=== PATIENT | female | born 1945 | race Caucasian/White ===

== ENCOUNTER → 2016-11-25 | Outpatient (REF) | payer MEDICARE, MEDICAID ==
[~2016-11-25] MED LIST: /ACETCOD2T PO; /ALEN70TA; /GLIP10TAB; /METO25TAB PO; /WARF5TA PO; ACET-71 PO; ACET50TA PO; ACTO45TA; ALEN35TA PO; ALLE25CA PO; AMLO10TA2 PO; AMLO5TAB2 PO; APAP325T PO; ARTI99.0 OU; ASPI81TA85 PO; BACITAB3 PO; BENGEL TOP; CALCCHW8 PO; CARV3.12 PO; CATA0.1D TD; CEPH500C PO; CLONI1TA PO; COLA100C PO; COLA100C2; COLA100C2 PO; COZA50TA PO; DARV100T; DIOV320T PO; DRIS50002 PO; DULO1CAP PO; ELIQ5TAB PO; FENOFIBRATE PO; FERG1TAB PO; FERR325T PO; FERR325T3 PO; FOLI1TAB2 PO; FOSA70TA PO; GABA-279 PO; GLUC500T PO; HYDR25TA6; INSUDET SC; INSUH10VL SC; ISOS60TA2 PO; JANUVIA PO; KEFL500C; LANTINJ4 SC; LASI20TA PO; LATA5OPD OU; LEVA250T PO; LEVE1INJ5 SC; LEXA1TAB PO; LIDO5DIS36 TD; LOSA50TA20 PO; MAGN250T10 PO; MELA5TAB14 PO; META28.35 PO; METF750T PO; METO25TA2 PO; METO25TA74 PO; MILKSUS PO; MUCI30TA2 PO; MYRB50TA PO; NITR2OI TOP; NORCOTAB PO; NORT75CA2 PO; NORV5TAB PO; NOVOINJ3 SC; NYST100024 TOP; OMEP20CA3 PO; OMEP40CA2 PO; OSCA200T PO; PERC5TAB8 PO; PERC7.5T8; PLAV75TA2; POLYBTL PO; PRED20TAB PO; PRIL40CA PO; RANI150T PO; SENO8.6T10 PO; SERT-141 PO; SERT50TA2 PO; TOPR50TA; TRIC145T PO; TYLE325T5 PO; VALS80CA PO; VESI10TA PO; VIST25CA PO; VITA10002 PO; VITA100027 PO; VITA500047 PO; VITA500C10 PO; VITA500T88 PO; VITAMIN B 12; VITAMIN B 12 PO; VITAMIN D50000 UNT; VITAMIN D50000 UNT PO; XARE20TA PO; ZETI10TA PO; ZETI10TA2 PO
[2016-11-25 08:49] LABS: MEAN CORPUSCULAR HEMOGLOBIN 28.8 pg (27.0-33.0); MEAN CORPUSCULAR HGB CONC 32.4 g/dl (32.0-36.5); MEAN CORPUSCULAR VOLUME 88.8 fl (80.0-96.0); RED CELL DISTRIBUTION WIDTH 13.2 % (11.5-14.5); WHITE BLOOD COUNT 6.7 K/mm3 (4.0-10.0)
[2016-11-25 09:18] LABS: ANION GAP 7 MEQ/L (8-16); BLOOD UREA NITROGEN 37 MG/DL (7-18); CALCIUM LEVEL 9.3 MG/DL (8.8-10.2); CARBON DIOXIDE LEVEL 28 MEQ/L (21-32); CHLORIDE LEVEL 107 MEQ/L (98-107); CREATININE FOR GFR 0.97 MG/DL (0.55-1.02); GLOMERULAR FILTRATION RATE > 60.0 (>39); GLUCOSE, FASTING 128 MG/DL (83-110); POTASSIUM SERUM 4.3 MEQ/L (3.5-5.1); SODIUM LEVEL 142 MEQ/L (136-145)
== END ==
LOC: SKLAB6 07:00
PROVIDERS: ATTEND Internal Medicine
DX: E11.22 Type 2 diabetes mellitus with diabetic chronic kidney disease (principal); N18.9 Chronic kidney disease, unspecified; Z86.73 Personal history of transient ischemic attack (TIA), and cerebral infarction without residual deficits; I73.9 Peripheral vascular disease, unspecified; I25.10 Atherosclerotic heart disease of native coronary artery without angina pectoris; F03.90 Unspecified dementia, unspecified severity, without behavioral disturbance, psychotic disturbance, mood disturbance, and anxiety

== ENCOUNTER → 2016-12-01 | Outpatient (REF) | payer MEDICARE, MEDICAID | LOC: SKLAB6 14:35 | PROVIDERS: ATTEND Internal Medicine | DX: R41.0 Disorientation, unspecified (principal); R35.0 Frequency of micturition ==

== ENCOUNTER → 2016-12-05 | Outpatient (REF) | payer MEDICARE, MEDICAID ==
[2016-12-05 17:52] LABS: MEAN CORPUSCULAR HEMOGLOBIN 29.5 pg (27.0-33.0); MEAN CORPUSCULAR HGB CONC 32.6 g/dl (32.0-36.5); MEAN CORPUSCULAR VOLUME 90.5 fl (80.0-96.0); RED CELL DISTRIBUTION WIDTH 12.6 % (11.5-14.5); WHITE BLOOD COUNT 7.1 K/mm3 (4.0-10.0)
[2016-12-05 18:03] LABS: ANION GAP 8 MEQ/L (8-16); BLOOD UREA NITROGEN 47 MG/DL (7-18); CALCIUM LEVEL 9.1 MG/DL (8.8-10.2); CARBON DIOXIDE LEVEL 26 MEQ/L (21-32); CHLORIDE LEVEL 110 MEQ/L (98-107); CREATININE FOR GFR 0.95 MG/DL (0.55-1.02); GLOMERULAR FILTRATION RATE > 60.0 (>39); GLUCOSE, FASTING 164 MG/DL (83-110); SODIUM LEVEL 144 MEQ/L (136-145)
== END ==
LOC: SKLAB6 16:52
PROVIDERS: ATTEND Internal Medicine
DX: R41.0 Disorientation, unspecified (principal)

== ENCOUNTER → 2016-12-29 | Outpatient (REF) | payer MEDICARE, MEDICAID ==
[2016-12-29 14:59] LABS: BASO % 0.4 % (0.0-1.0); EOS # 0.2 K/mm3 (0.0-0.50); EOS % 3.5 % (0.0-3.0); LARGE UNSTAINED CELL # 0.1 K/mm3 (0.0-0.4); LARGE UNSTAINED CELL % 1.1 % (0.0-4.0); LYMPH # 1.2 K/mm3 (1.5-4.5); LYMPH % 17.2 % (24.0-44.0); MEAN CORPUSCULAR HEMOGLOBIN 29.7 pg (27.0-33.0); MEAN CORPUSCULAR HGB CONC 32.8 g/dl (32.0-36.5); MEAN CORPUSCULAR VOLUME 90.5 fl (80.0-96.0); MONO # 0.3 K/mm3 (0.0-0.8); MONO % 4.5 % (0.0-5.0); NEUTROPHILS # 4.7 K/mm3 (1.8-7.7); NEUTROPHILS % 73.3 % (36.0-66.0); PLATELET COUNT, AUTOMATED 246 k/mm3 (150-450); RED CELL DISTRIBUTION WIDTH 12.6 % (11.5-14.5); WHITE BLOOD COUNT 6.4 K/mm3 (4.0-10.0)
[2016-12-29 15:21] LABS: ALBUMIN 3.1 GM/DL (3.2-5.2); MAGNESIUM LEVEL 1.7 MG/DL (1.8-2.4); PHOSPHORUS LEVEL 3.9 MG/DL (2.5-4.9); POTASSIUM SERUM 4.9 MEQ/L (3.5-5.1); URIC ACID 6.7 MG/DL (2.6-6.0)
== END ==
LOC: SKLAB6 13:00
PROVIDERS: ATTEND Internal Medicine
DX: R41.82 Altered mental status, unspecified (principal); N18.3 Chronic kidney disease, stage 3 (moderate)

== ENCOUNTER 2017-02-24 11:59 | Inpatient (IN) | payer MEDICARE, MEDICAID ==
[~2017-02-24] VITALS: Ht 154.9 cm; Wt 62.1 kg
[~2017-02-24 11:59] MED LIST changes: -AMIO0.1T PO; -ATEN25TA PO; -CEFD1CAP8 PO; -DECA1CAP2 PO; -DULC10SU2 PR; -ENEMENE3 PR; -GLUC1KIT IM; -GLUC4CHW PO; -HALD5INJ2 IM; -ISOS10TAB PO; -PHEN1SUP6 PR; -PROM25TA PO; -RANI1TAB38 PO; -SENN8.6T7 PO; -SERO1TAB3 PO; -SPIR25TA2 PO; -TORS10TA3 PO; -VENL75TA2 PO
[2017-02-24] MEDS ORDERED: DECA1CAP2 PO (12:36)
[2017-02-24] MEDS ORDERED: RANI1TAB38 PO (12:36)
[2017-02-24] MEDS ORDERED: SPIR25TA2 PO (12:36)
[2017-02-24] MEDS ORDERED: SERO1TAB3 PO (12:36)
[2017-02-24] MEDS ORDERED: TORS10TA3 PO (12:36)
[2017-02-24] MEDS ORDERED: VENL75TA2 PO (12:36)
[2017-02-24] MEDS ORDERED: NS 500 ML IV ONE ×2 (13:00→15:15)
[2017-02-24 13:41] LABS: MEAN CORPUSCULAR HEMOGLOBIN 28.1 pg (27.0-33.0); MEAN CORPUSCULAR HGB CONC 32.3 g/dl (32.0-36.5); RED CELL DISTRIBUTION WIDTH 13.3 % (11.5-14.5); WHITE BLOOD COUNT 7.7 K/mm3 (4.0-10.0)
[2017-02-24 14:09] LABS: ALBUMIN 3.5 GM/DL (3.2-5.2); ALBUMIN/GLOBULIN RATIO 1.03 (1.00-1.93); BILIRUBIN,DIRECT 0.1 MG/DL (0.0-0.2); BILIRUBIN,TOTAL 0.3 MG/DL (0.2-1.0); TOTAL PROTEIN 6.9 GM/DL (6.4-8.2)
[2017-02-24 14:14] LABS: POTASSIUM SERUM 6.2 MEQ/L (3.5-5.1)
--- NOTE | 2017-02-24 14:21 | REP ---
BILATERAL RENAL ULTRASOUND: 02/24/2017. Clinical history: Acute renal failure. Sonographic evaluation of the kidneys shows the right 9.7 x 4.6 x 4.4 cm, it has normal cortical echogenicity and thickness. Sinus lipomatosis noted. There is no hydronephrosis or hydroureter. The left kidney is 8.7 x 4.3 x 3.8 cm. There is areas of increased cortical echogenicity and some overall mild atrophy. Sinus lipomatosis again seen. There is no stone, cyst, solid mass or perinephric fluid. No hydronephrosis. The bladder is nearly empty, unable to be evaluated. Impression: 1. Atrophy of the left kidney 8.7 cm with the right kidney 9.7 cm in length. 2. No hydronephrosis or hydroureter on either side with some mild increased cortical echogenicity on the left that may reflect some medical renal disease. 3. Sinus lipomatosis both sides without mass, cyst or visible stone. 4. Bladder nearly empty unable to be evaluated. Exam somewhat limited overall with sonographic windows limited and the patient unable to breath hold adequately. Signed by Marvin Huggins MD 02/24/2017 03:01 P
[2017-02-24] MEDS ORDERED: HumuLIN R (REGULAR) INSULIN (NovoLIN R) **100U/ML** PER UNIT IV ONE (14:30)
[2017-02-24] MEDS ORDERED: SOD POLYSTYRENE SULFONATE SUSP 15 GM/60 ML UD PO ONE (14:30)
[2017-02-24] MEDS ORDERED: DEXTROSE 50% 50 ML SYRINGE IV SCH (14:30)
--- NOTE | 2017-02-24 15:30 | REP ---
TWO VIEW CHEST: Two views of the chest are performed. COMPARISON: 10/18/2016 as well as other prior exams. There is no acute infiltrate. The heart is not enlarged. Mediastinal silhouette is unchanged. There is mild calcification of thoracic aorta. There are degenerative changes of the spine. There is an old compression deformity of T12 vertebral body. IVC filter is present. Metallic clips are seen in the right upper quadrant of the abdomen. There is an old fracture of the proximal right humerus. IMPRESSION: No acute pulmonary disease. Signed by Alfred Sosa MD 02/25/2017 03:17 P
[2017-02-24] MEDS ORDERED: PHEN1SUP6 PR (16:29)
[2017-02-24] MEDS ORDERED: HALD5INJ2 IM (16:29)
[2017-02-24] MEDS ORDERED: ENEMENE3 PR (16:29)
[2017-02-24] MEDS ORDERED: DULC10SU2 PR (16:29)
[2017-02-24] MEDS ORDERED: PROM25TA PO (16:29)
[2017-02-24] MEDS ORDERED: GLUC1KIT IM (16:32)
[2017-02-24] MEDS ORDERED: GLUC4CHW PO (16:32)
[2017-02-24] MEDS ORDERED: SENN8.6T7 PO (16:32)
[2017-02-24] MEDS ORDERED: GLUCAGON FOR INJ 1 MG VIAL (J1610) SC PRN (17:45)
[2017-02-24] MEDS ORDERED: SENOKOT S TAB PO PRN (17:45)
[2017-02-24] MEDS ORDERED: GLUCOSE 4 GM CHEW TABLET PO PRN (17:45)
[2017-02-24] MEDS ORDERED: POLYVINYL ALCOHOL OPHTH SOLN 15 ML(LIQUITEARS) OU PRN (17:45)
[2017-02-24] MEDS ORDERED: DEXTROSE 50% 50 ML SYRINGE IV PRN (17:45)
[2017-02-24] MEDS ORDERED: BISACODYL 10 MG SUPP PR PRN (17:45)
[2017-02-24] MEDS ORDERED: PROMETHAZINE 25 MG SUPP PR PRN (17:45)
[2017-02-24] MEDS ORDERED: NYSTATIN 100,000 UNITS/GM TOPICAL PWD 15 GM TOP PRN (17:45)
[2017-02-24] MEDS ORDERED: HALOPERIDOL 5 MG/ML VIAL (J1630) IM PRN (17:45)
[2017-02-24] MEDS ORDERED: MOM 30ML SUSPENSION UDC PO PRN (17:45)
[2017-02-24] MEDS ORDERED: PROMETHAZINE 25 MG TAB PO PRN (17:45)
[2017-02-24] MEDS: NS 1,000 ML IV SCH (18:18)
[2017-02-24] MEDS: FOLIC ACID 1 MG TAB PO SCH (18:18)
[2017-02-24 20:47] LABS: ALBUMIN 3.6 GM/DL (3.2-5.2); ALBUMIN/GLOBULIN RATIO 1.09 (1.00-1.93); BILIRUBIN,TOTAL 0.2 MG/DL (0.2-1.0); CREATININE FOR GFR 1.65 MG/DL (0.55-1.02); GLOMERULAR FILTRATION RATE 32.6 (>39); TOTAL PROTEIN 6.9 GM/DL (6.4-8.2)
[2017-02-24 20:52] LABS: POTASSIUM SERUM 5.2 MEQ/L (3.5-5.1)
[2017-02-24] MEDS: HumaLOG INSULIN (NovoLOG) PER UNIT SC SCH (21:00)
[2017-02-24] MEDS: ACETAMINOPHEN TAB 650MG DOSE (2X325MG) PO SCH (21:00)
[2017-02-24 21:10] VITALS: BP 159/75
[2017-02-24] MEDS: FAMOTIDINE 20 MG TAB PO SCH (21:14)
[2017-02-24] MEDS: LATANOPROST 0.005% OPHTH SOLN 2.5 ML OU SCH (21:14)
[2017-02-24] MEDS: QUEtiapine FUMARATE 25 MG TAB PO SCH (21:14)
[2017-02-24] MEDS: LEVEMIR (INSULIN DETEMIR) 1 UNITS/0.01ML SC SCH (21:15)
[2017-02-24 21:28] LABS: BASO % 0.3 % (0.0-1.0); EOS # 0.2 K/mm3 (0.0-0.50); EOS % 2.6 % (0.0-3.0); LARGE UNSTAINED CELL # 0.1 K/mm3 (0.0-0.4); LARGE UNSTAINED CELL % 1.5 % (0.0-4.0); LYMPH # 1.6 K/mm3 (1.5-4.5); LYMPH % 18.6 % (24.0-44.0); MEAN CORPUSCULAR HEMOGLOBIN 28.2 pg (27.0-33.0); MEAN CORPUSCULAR HGB CONC 32.5 g/dl (32.0-36.5); MEAN CORPUSCULAR VOLUME 86.9 fl (80.0-96.0); MONO # 0.5 K/mm3 (0.0-0.8); MONO % 5.8 % (0.0-5.0); NEUTROPHILS # 5.9 K/mm3 (1.8-7.7); NEUTROPHILS % 71.2 % (36.0-66.0); PLATELET COUNT, AUTOMATED 293 k/mm3 (150-450); RED CELL DISTRIBUTION WIDTH 13.4 % (11.5-14.5); WHITE BLOOD COUNT 8.2 K/mm3 (4.0-10.0)
--- NOTE | 2017-02-24 21:52 | HPE ---
DATE OF ADMISSION: 02/24/2017 PRIMARY CARE PROVIDER: Dr. Saucedo Patient is a resident at [facility]). ATTENDING PROVIDER: Dr. Kang HISTORY OF PRESENT ILLNESS: The patient is a 71-year-old female, history of dementia, presented to the emergency room from [facility] after she was found to have acute kidney injury and hyperkalemia, likely secondary to poor oral intake and diuretics. She was started on IV fluids. The patient is confused, unable to provide history. Most of the history is obtained from previous medical records and the emergency room (ER) report. REVIEW OF SYSTEMS: Unable to obtain due to the patient's mentation. PAST MEDICAL HISTORY: Significant for diabetes, coronary artery disease (CAD), peripheral vascular disease, history of stroke, hypertension, chronic kidney disease (CKD) stage III, history of deep venous thrombosis (DVT) status post inferior vena cava (IVC) filter and history of dementia. PAST SURGICAL HISTORY: Significant for hysterectomy, cholecystectomy, appendectomy, right CVA, IVC filter placed, back surgery and bladder tumor removal. ALLERGIES: LIDOCAINE, NIACIN, PENTOXIFYLLINE, DILTIAZEM, HYDROCODONE, MOXIFLOXACIN, QUINOLONES, TRAMADOL, VERAPAMIL, ATORVASTATIN, METFORMIN, OMEPRAZOLE, ROSUVASTATIN and SIMVASTATIN. MEDICATIONS: Include: - Tylenol 650 by mouth twice a day - Senna as needed for constipation - Dulcolax as needed for constipation - folic acid 1 mg daily - Haldol 1 mg IM every 6 hours as needed for agitation - Levemir 10 units subcutaneously twice a day - melatonin 5 mg at bedtime - milk of magnesia 30 mL for constipation - nystatin rash and itching - promethazine 25 mg every 6 hours as needed for nausea - Phenergan 25 mg every 6 hours as needed for nausea - Seroquel 25 mg by mouth twice a day - ranitidine one tablet by mouth daily - enema as needed for constipation - spironolactone 25 mg daily FAMILY HISTORY: Noncontributory. SOCIAL HISTORY: The patient is a resident at [facility]. PHYSICAL FINDINGS: Temperature 97.3, pulse 95, respiratory rate 18, blood pressure is 115/57, pulse oximetry 99% on room air. HEENT: Pupils equal, round, react to light and accommodation. Neck: Supple. No jugular venous distention (JVD). Lungs: Clear to auscultation bilaterally. Cardiac: The patient had an episode of atrial fibrillation that she converted out of in the emergency room. She has no history of atrial fibrillation. Currently the patient is tachycardiac in atrial fibrillation at a rate of 130-140. Extremities: No clubbing, cyanosis or edema. Neurologic: Unable to do a neurologic exam at this time. LABORATORY FINDINGS: Sodium 142, potassium 5.2, chloride 108, BUN 90, creatinine 1.65, fasting glucose 159, AST 17, ALT 26. WBC 7.7, hemoglobin 2.8, hematocrit 36.6, platelet count 289. Urinalysis was grossly abnormal, cloudy in appearance, too many to count WBCs, 3+ leukocyte esterase. Urine culture pending. Renal ultrasound was done in emergency room which showed atrophy of the left kidney of 8.7 cm and the right kidney of 9.7 cm. No hydronephrosis. No mass or cyst seen. Bladder is nearly empty, able to be evaluated. ASSESSMENT/PLAN: 1. Acute on chronic kidney disease. The patient has stage III kidney injury. Baseline creatinine is 0.9 to 1. Upon presentation it was 1.86, repeat after the patient received some fluid was 1.65. The patient was also found to have hyperkalemia, likely secondary to dehydration. We will continue IV fluids. Repeat labs in the morning. 2. Hyperkalemia. Likely secondary to diuretics. The patient is on spironolactone which we will hold at this time. We will also hold her torsemide and continue IV fluids, gentle hydration. 3. History of insulin-dependent diabetes. Continue Levemir 10 units twice a day and insulin sliding scale with Accu-Check before food and at bedtime. Will start the patient on carbohydrate consistent diet. 4. History of dementia. Continue the patient's Haldol as needed. 5. Atrial fibrillation, may be secondary to dehydration. Continue IV fluids. Continue to monitor the patient on telemetry. The patient has no known history of atrial fibrillation. We will repeat EKG in the morning. 6. Deep venous thrombosis (DVT) prophylaxis. Continue the patient on thromboembolism deterrents (TEDs) and sequentials.
[2017-02-24 22:02] VITALS: BP 140/63
[2017-02-25] VITALS (13 sets, daily range): BP systolic 120–162; BP diastolic 60–92
[2017-02-25] MEDS ORDERED: METOPROLOL 5 MG/5 ML VIAL IV STA (01:09)
[2017-02-25] MEDS ORDERED: METOPROLOL 5 MG/5 ML VIAL As Ordered ONE (01:12)
[2017-02-25] MEDS ORDERED: DIGOXIN INJ 0.5 MG/2 ML AMP (J1160) IV STA (01:26)
[2017-02-25] MEDS ORDERED: DIGOXIN INJ 0.5 MG/2 ML AMP (J1160) As Ordered ONE (01:29)
--- NOTE | 2017-02-25 03:13 | IPNPDOC ---
Date Seen The patient was seen on 02/25/17. Progress Note SUBJECTIVE: Patient was found to be in atrial fibrillation with RVR after moved from ED to PCU with fastest rate ranged 140s-180s. Remained asymptomatic, states that she is annoyed that people keep coming in and out of her room regarding her heart rate when she feels fine. Per report, patient has history of dementia. Patient was evaluated at bedside. Received Lopressor 3 mg and Digoxin 0.25 mg IV and approximately 5 minutes later had 3 secs pause. She remained asymptomatic throughout with stable Blood pressures. Case discussed with retort pre cooker marine engineering consultant, Dr. Martin, who at this time recommends a trial low of dose Cardizem. Given patient is currently rate controlled, will monitor patient off any AV ron agent. Discontinue digoxin. If her heart rate increases, will trial Cardizem later. Attempted to contact patient's family to update patient's status and verify code status, Felipa Byrne, daughter, , [phone] but no one was available. Patient has a DNR in chart but reportedly tonight wanted to be full code but she is not oriented to time. For now, will keep her Full code until further clarification from her HCP. I have both independently examined this patient as well as reviewed the note. I have discussed in detail with the resident the findings and plan of treatment as documented in the residents note. I will continue to follow the patient and offer further guidance to the patients care as necessary during this hospital stay. Truong Tobar MD VS, I&O, 24H, Umesh Vital Signs/I&O Vital Signs Date Time Temp Pulse Resp B/P Pulse Ox O2 Delivery O2 Flow Rate FiO2 02/25/17 02:14 Room Air 02/25/17 01:34 156 02/25/17 01:16 120/80 02/25/17 00:50 96.9 18 99 I&O- Last 24 Hours up to 6 AM 02/25/17 06:00 Intake Total 740 ml Output Total 100 ml Balance 640 ml Laboratory Data 24H LABS Laboratory Tests 2 02/24/17 13:28: Aspartate Amino Transf (AST/SGOT) 20, Alanine Aminotransferase (ALT/SGPT) 25, Alkaline Phosphatase 59, Total Bilirubin 0.3, Direct Bilirubin 0.1, Albumin 3.5 , Albumin/Globulin Ratio 1.03, Total Protein 6.9, Urine Amorphous Sediment , Urine Appearance CLOUDYH, Urine Color YELLOW, Urine pH 5.0, Urine Specific [place] 1.010, Urine Protein 1+H, Urine Glucose (UA) NEGATIVE, Urine Ketones NEGATIVE, Urine Urobilinogen 0.2, Urine Bilirubin NEGATIVE, Urine Leukocyte Esterase 3+H, Urine Bacteria (Auto) NEGATIVE, Urine Blood 1+H, Urine Calcium Carbonate Cryst(Auto) , Urine Calcium Oxalate Cryst (Auto) , Urine Calcium Phosphate [place] (Auto) , Urine Cellular Casts , Urine Cystine Crystals , Urine Granular Casts (Auto) , Urine Hyaline Casts (Auto) 4, Urine Leucine Crystals , Urine Mucus (Auto) SMALL, Urine Nitrite NEGATIVE, Urine Oval Fat Bodies (Auto) , Urine RBC (Auto) 13H, Urine Renal Epithelial Cells , Urine Sperm (Auto) , Urine Squamous Epithelial Cells 1, Urine Transitional Epithelial Cells , Urine Trichomonas (Auto) , Urine Triple Phosphate Cryst (Auto) , Urine Tyrosine Crystals , Urine Uric Acid Crystals (Auto) , Urine WBC (Auto) TNTCH, Urine Waxy Casts (Auto) , Urine Yeast-Like Cells (Auto) 02/24/17 14:50: Bedside Glucose (Misc Panel) 130H 02/24/17 18:11: Bedside Glucose (Misc Panel) 113H 02/24/17 20:12: Aspartate Amino Transf (AST/SGOT) 17, Alanine Aminotransferase (ALT/SGPT) 26, Alkaline Phosphatase 60, Total Bilirubin 0.2, Albumin 3.6, Albumin/Globulin Ratio 1.09, Total Protein 6.9, Blood Urea Nitrogen 90H, Creatinine 1.65H, Sodium Level 142, Potassium Level 5.2H, Chloride Level 108H, Carbon Dioxide Level 25, Calcium Level 9.0, Anion Gap 9, Glomerular Filtration Rate 32.6L 02/24/17 20:22: Bedside Glucose (Misc Panel) 141H 02/24/17 21:07: White Blood Count 8.2, Red Blood Count 4.38, Hemoglobin 12.4, Hematocrit 38.0, Mean Corpuscular Volume 86.9, Mean Corpuscular Hemoglobin 28.2, Mean Corpuscular Hemoglobin Concent 32.5, Red Cell Distribution Width 13.4, Platelet Count 293, Neutrophils (%) (Auto) 71.2H, Lymphocytes (%) (Auto) 18.6L, Monocytes (%) (Auto) 5.8H, Eosinophils (%) (Auto) 2.6, Basophils (%) (Auto) 0.3 , Neutrophils # (Auto) 5.9, Lymphocytes # (Auto) 1.6, Monocytes # (Auto) 0.5, Eosinophils # (Auto) 0.2, Basophils # (Auto) 0.0, Large Unclassified Cells # 0.1 , Large Unclassified Cells % 1.5 02/25/17 01:33: Creatine Kinase MB 7.4H, Creatine Kinase MB Relative Index 10.13H, Magnesium Level 2.0, Thyroid Stimulating Hormone (TSH) 2.070, Total Creatine Kinase 73, Troponin I 0.05 CBC/BMP Laboratory Tests 02/24/17 13:28 Red Blood Count 4.21, Mean Corpuscular Volume 87.0, Mean Corpuscular Hemoglobin 28.1, Mean Corpuscular Hemoglobin Concent 32.3, Red Cell Distribution Width 13.3 02/24/17 20:12 Calcium Level 9.0, Aspartate Amino Transf (AST/SGOT) 17, Alanine Aminotransferase (ALT/SGPT) 26, Alkaline Phosphatase 60, Total Bilirubin 0.2, Total Protein 6.9, Albumin 3.6 02/24/17 21:07 Red Blood Count 4.38, Mean Corpuscular Volume 86.9, Mean Corpuscular Hemoglobin 28.2, Mean Corpuscular Hemoglobin Concent 32.5, Red Cell Distribution Width 13.4 , Neutrophils (%) (Auto) 71.2 H, Lymphocytes (%) (Auto) 18.6 L, Monocytes (%) ( Auto) 5.8 H, Eosinophils (%) (Auto) 2.6, Basophils (%) (Auto) 0.3, Neutrophils # (Auto) 5.9, Lymphocytes # (Auto) 1.6, Monocytes # (Auto) 0.5, Eosinophils # ( Auto) 0.2, Basophils # (Auto) 0.0 Microbiology Microbiology 02/24/17 Urine Culture, Received Pending PAULINA ZAYAS DO Feb 25, 2017 03:13 TRUONG TOBAR MD Feb 25, 2017 18:45
[2017-02-25] MEDS ORDERED: DIGOXIN INJ 0.5 MG/2 ML AMP (J1160) IV SCH (06:00)
[2017-02-25] MEDS ORDERED: DIGOXIN INJ 0.5 MG/2 ML AMP (J1160) IV ONE (06:00)
[2017-02-25 07:15] LABS: MEAN CORPUSCULAR HEMOGLOBIN 28.1 pg (27.0-33.0); MEAN CORPUSCULAR HGB CONC 32.2 g/dl (32.0-36.5); MEAN CORPUSCULAR VOLUME 87.1 fl (80.0-96.0); RED CELL DISTRIBUTION WIDTH 13.4 % (11.5-14.5); WHITE BLOOD COUNT 6.8 K/mm3 (4.0-10.0)
[2017-02-25 07:38] LABS: ALBUMIN/GLOBULIN RATIO 0.86 (1.00-1.93); BILIRUBIN,TOTAL 0.2 MG/DL (0.2-1.0); CALCIUM LEVEL 8.5 MG/DL (8.8-10.2); CREATININE FOR GFR 1.41 MG/DL (0.55-1.02); MAGNESIUM LEVEL 1.8 MG/DL (1.8-2.4); POTASSIUM SERUM 4.7 MEQ/L (3.5-5.1); TOTAL PROTEIN 6.5 GM/DL (6.4-8.2)
[2017-02-25] MEDS: QUEtiapine FUMARATE 25 MG TAB PO SCH ×2 (08:26→21:41)
[2017-02-25] MEDS: LEVEMIR (INSULIN DETEMIR) 1 UNITS/0.01ML SC SCH ×2 (08:26→21:41)
[2017-02-25] MEDS: VENLAFAXINE 37.5 MG TAB PO SCH (08:27)
[2017-02-25] MEDS: cefTRIAXone SOD 2 GM in D5W MINI-BAG PLUS 50 ML IV SCH ×2 (08:27→18:33)
[2017-02-25] MEDS: FAMOTIDINE 20 MG TAB PO SCH ×2 (08:27→21:42)
[2017-02-25] MEDS: FOLIC ACID 1 MG TAB PO SCH (08:27)
[2017-02-25] MEDS: ACETAMINOPHEN TAB 650MG DOSE (2X325MG) PO SCH ×2 (08:27→21:42)
[2017-02-25] MEDS: HumaLOG INSULIN (NovoLOG) PER UNIT SC SCH ×4 (08:28→21:41)
[2017-02-25] MEDS: NS 1,000 ML IV SCH (08:28)
[2017-02-25] MEDS ORDERED: SPIRONOLACTONE 25 MG TAB PO SCH (09:00)
[2017-02-25] MEDS: PHENAZOPYRIDINE 100 MG TAB PO SCH ×2 (14:25→21:42)
--- NOTE | 2017-02-25 16:29 | IPN ---
DATE: 02/25/2017 SUBJECTIVE: Patient seen and examined in the room today. Patient shows some sign of dementia. Denies any acute complaints, but patient did complain about dysuria for several days. On telemetry patient was noted to have acute atrial fibrillation when patient was walking to the restroom, and when patient came back to the room resting in bed he was noted to have a 3-second asystole, and patient's heart rate converted back to sinus rhythm. OBJECTIVE: VITAL SIGNS: Temperature is 99, pulse 88, respirations 18, blood pressure is 132/63, pulse oximetry is 100% in room air. GENERAL: Patient has sign of dementia. Patient alert and awake, able to answer questions and follow commands. HEENT: Normocephalic, atraumatic. Extraocular motor grossly intact. CARDIOVASCULAR: Positive S1, S2, regular rate at the time of examination, but patient noted to have an infrequent atrial fibrillation with a few seconds of asystole. GASTROINTESTINAL: Abdomen soft, nontender, nondistended. Bowel sounds present. EXTREMITIES: No edema. No sign of cyanosis. LABORATORY DATA: WBC 6.8, hemoglobin 11.1, hematocrit 87.1, platelet count of 271. Sodium is 142, potassium 4.7, chloride is 111, carbon dioxide is 24, BUN is 69, creatinine 1.41, GFR is 39, fasting glucose 118, calcium is 8.5, magnesium 1.8. Total bilirubin 0.2, AST 20, ALT 22, alkaline phosphatase is 52. Total CK is 77, troponin I 0.05. Total protein 6.5, albumin 3. TSH of 2.07. ASSESSMENT AND PLAN: 1. Acute kidney injury secondary to poor oral intake. At baseline, patient has a creatinine around 1. Patient is currently on intravenous (IV) fluid. Patient's renal function has been improving since admission. 2. Hypokalemia secondary to poor oral intake. On admission patient had a potassium of 6.2. Now patient's potassium is 4.7, which is within normal range. 3. History of insulin-dependent diabetes. Patient is on Levemir, covering with sliding scale. Patient will be on consistent-carbohydrate diet. 4. History of dementia. 5. History of atrial fibrillation. Patient does not have a known history of atrial fibrillation. Patient is on cardiac telemetry. 6. Deep vein thrombosis (DVT) prophylaxis. Patient on thromboembolic deterrents (TEDs) and sequential compression devices.
--- NOTE | 2017-02-25 17:28 | IPN ---
DATE: 02/25/2017 SUBJECTIVE: The patient had an episode of atrial fibrillation (A-fib) with rapid ventricular rate (RVR), and there is also a three second asystole noted on the cardiac telemetry. I reached out to on-call investment manager, Dr. Martin. He discussed the case, and then I also called the patient's healthcare proxy, Mrs. Felipa Munson. Her phone number is [phone], and also discussed the situation with the proxy. They decided they were willing to consider option for a pacemaker insertion, and relating the patient back to investment manager, Dr. Martin, and the patient will be evaluated for possible pacemaker insertion. I also confirmed with the patient's proxy, Mrs. Leo, and confirmed that the patient's code status is DO NOT RESUSCITATE (DNR)/DO NOT INTUBATE (DNI).
[2017-02-25] MEDS: AMIODARONE 200 MG TAB (PACERONE) PO SCH ×2 (17:41→21:42)
--- NOTE | 2017-02-25 21:33 | CR ---
DATE OF CONSULTATION: 02/25/2017 REFERRING PHYSICIAN: Dr. Ann Kang REASON FOR CONSULTATION: Paroxysmal atrial fibrillation with rapid ventricular response, sick sinus syndrome/tachycardia-bradycardia syndrome. HISTORY OF PRESENT ILLNESS: Moriah Delgadillo is a pleasant 71-year-old woman with sick sinus syndrome and dementia. When she was hospitalized to [facility] in April 2016, she was noted to have episodes of profound sinus bradycardia in the 30s for which she was on just carvedilol 3.125 mg twice a day. She was found to be very sensitive to beta blockers and calcium channel blockers because of severe bradycardia. During the present hospitalization, the patient developed episodes of paroxysmal atrial fibrillation with rapid ventricular response and when she spontaneously converted to sinus rhythm, she was having pauses in the neighborhood of 3.4 seconds, associated with transient severe lightheadedness/presyncope. She was tried on a small dose of beta shannon initially and was subsequently tried on a low dose of diltiazem and again she continued to have severe transient bradycardia/asystole following switch from atrial fibrillation with rapid response back to sinus mechanism. Furthermore, these medications did not do an adequate job of controlling the rapid ventricular response when she was in atrial fibrillation. Cardiology has been consulted for consideration of implanting a dual chamber pacemaker for sick sinus syndrome/tachycardia-bradycardia syndrome. The patient is a poor historian because of dementia. The patient does recall that she was severely lightheaded and almost passed out when she was in the bathroom yesterday. She denies any palpitations, chest pain, shortness of breath, strokes or claudication symptoms, but again I do not think that she is very reliable because of dementia. PAST MEDICAL HISTORY: Includes: 1. Type 2 diabetes . 2. Systemic hypertension. 3. History of deep vein thrombosis (DVT), for which she had been on Eliquis chronically and she has status post inferior vena cava filter. 4. Dementia. 5. Prior stroke with resultant left sided hemiparesis. 6. Diabetic neuropathy. 7. Benign bladder tumor. 8. Osteoarthritis. 9. Status post hysterectomy. 10. Status post appendectomy. 11. Status post cholecystectomy. 12. Status post cataract surgery. 13. Status post right carotid endarterectomy. 14. Status post inferior vena cava filter. 15. Status post L2-L3 and L4-L5 decompression surgeries. 16. Status post removal of bladder tumors. 17. Chronic kidney disease stage III. ADVERSE DRUG REACTIONS: LIDOCAINE, NIACIN, PENTOXIFYLLINE, DILTIAZEM, HYDROCODONE, MOXIFLOXACIN, QUINOLONES, TRAMADOL, VERAPAMIL, ATORVASTATIN, METFORMIN, OMEPRAZOLE, ROSUVASTATIN, SIMVASTATIN. MEDICATIONS PRIOR TO ADMISSION: - Tylenol - Senna as needed for constipation - Dulcolax as needed for constipation - folic acid 1 mg daily - Haldol 1 mg intramuscularly every 6 hours as needed for agitation - Levemir 10 units subcutaneously twice a day - melatonin 5 mg at night - milk of magnesia 30 mL as needed for constipation - Nystatin for rash - promethazine 25 mg by mouth every 6 hours as needed for nausea - Phenergan 25 mg every 6 hours as needed for nausea - Seroquel 25 mg twice a day - ranitidine one tablet daily - spironolactone 25 mg daily The patient's current medications in the hospital are as follows: - amiodarone 200 mg four times a day - Pyridium 100 mg by mouth every 8 hours - Effexor 75 mg daily - Humalog insulin per sliding scale - ceftriaxone 2 grams intravenously every 12 hours - acetaminophen 650 mg twice a day - Levemir insulin 10 units subcutaneously twice a day - Xalatan ophthalmic solution one drop both eyes at night - Seroquel 25 mg twice a day - famotidine 20 mg by mouth twice a day - Humalog insulin at night per sliding scale - artificial tears - Dulcolax suppository 10 mg daily as needed - Senokot S one twice a day as needed - Haloperidol 1 mg intramuscularly every 6 hours as needed for agitation - milk of magnesia 30 mL daily as needed - Nystatin powder topically twice a day as needed - Phenergan 25 mg by mouth every 6 hours as needed for nausea - Phenergan suppository 25 mg every 6 hours as needed - folic acid 1 mg by mouth daily FAMILY HISTORY: Noncontributory. SOCIAL HISTORY: Resident of [facility]. REVIEW OF SYSTEMS: Review of systems could not be reliably obtained from this patient because of dementia. PHYSICAL EXAMINATION: Pleasant, , elderly woman who was not in respiratory or psychological distress. She was oriented to person and place but not time. She appears overweight, although her Body Mass Index (BMI) was 24.6. Height 61 inches. Weight 58.97 kg. Temperature 96.9, pulse 80 (regular), respiratory rate 20, blood pressure 157/92, oxygen saturation 97% on room air. No conjunctival pallor or scleral icterus or xanthomas. Edentulous. Oral mucosa is moist. Tongue is without pallor. Jugular venous pulsations at 3 cm. Trachea midline. No palpable thyroid. Right carotid endarterectomy scar present. No clubbing or splinter hemorrhages. No skin lesions, skin pallor or icterus. Mood and affect appear normal. Curvature of spine normal. Gait not tested. Gross motor, strength and tone normal. No abnormal muscle fasciculations or tremors. Respiratory expansion and effort was good. No paradoxical wheezes. First and second heart sounds normal. No S3 or S4. No palpable apex beat. Quads were normal in contour and without bruits. No palpable abdominal aorta. No abdominal bruits. Femoral pulses normal. Pedal pulses normal. No lower extremity edema. Abdomen was soft and nontender with normal bowel sounds. No hepatosplenomegaly. No organomegaly. Liver span is 10 cm from right midclavicular line. Stool for occult blood not presently indicated. INVESTIGATIONS: I have independently visualized the patient's PA and lateral chest x-ray acquired on 02/24/2017. Heart appears to be normal in size. Suboptimal inspiration. No pulmonary vascular redistribution. No interstitial or alveolar infiltrate. No pleural effusions. Electrocardiogram on 02/25/2017 at 12:17 p.m. shows sinus rhythm, 78 beats per minute, normal PA interval, low limb lead voltages, nonspecific ST-T abnormalities. Poor R wave progression. Laboratory work from 02/25/2017 was reviewed. Hemoglobin 11.1, hematocrit 34.5, platelets 271. Sodium 142, potassium 4.7, chloride 111, CO2 24, BUN 69, creatinine 1.41, estimated GFR 39.0, glucose 118, magnesium 1.8, calcium 8.5, albumin 3.0. ASSESSMENT AND PLAN: 1. Paroxysmal atrial fibrillation with rapid ventricular response. The patient may resume her chronic Eliquis therapy within a few days following placement of a permanent pacemaker . Once the patient has had a permanent pacemaker, she can be placed safely on a beta shannon or other AV ron slowing agent. Given her problems with constipation, I would suggest use of beta shannon rather than a non-dihydropyridine calcium channel shannon. Also, I would like to try to keep her in sinus rhythm as much as possible because she has such a rapid ventricular response in atrial fibrillation and to do so she will be placed on low dose amiodarone. 2. Sick sinus syndrome/tachycardia-bradycardia syndrome. The patient qualifies for implantation of a permanent dual chamber pacemaker. This was discussed by telephone with the patient's daughter, who also serves as the patient's healthcare proxy (daughter is Felipa Byrne). Indications and benefits of pacemaker implantation were explained, as well as risks of pacemaker implantation exactly as listed on the consent form were explained by telephone and telephone consent was obtained. The plan is to proceed to the operating room tomorrow for implantation of a permanent dual chamber pacemaker. 3. Systemic hypertension. Continue to observe blood pressure trends in the hospital and once the patient has had a permanent pacemaker, the plan is to add a beta shannon. Thank you kindly for asking me to participate in the care of Moriah Delgadillo.
[2017-02-25] MEDS: LATANOPROST 0.005% OPHTH SOLN 2.5 ML OU SCH (21:41)
[2017-02-26] VITALS (10 sets, daily range): BP systolic 123–182; BP diastolic 53–84
[2017-02-26] MEDS: NS 1,000 ML IV SCH ×3 (01:55→12:50)
[2017-02-26 05:36] LABS: MEAN CORPUSCULAR HEMOGLOBIN 27.8 pg (27.0-33.0); MEAN CORPUSCULAR HGB CONC 31.1 g/dl (32.0-36.5); MEAN CORPUSCULAR VOLUME 89.2 fl (80.0-96.0); RED CELL DISTRIBUTION WIDTH 13.6 % (11.5-14.5); WHITE BLOOD COUNT 5.7 K/mm3 (4.0-10.0)
[2017-02-26] MEDS: cefTRIAXone SOD 2 GM in D5W MINI-BAG PLUS 50 ML IV SCH ×2 (05:39→18:39)
[2017-02-26] MEDS: PHENAZOPYRIDINE 100 MG TAB PO SCH ×3 (05:40→21:52)
[2017-02-26 05:49] LABS: ALBUMIN/GLOBULIN RATIO 0.88 (1.00-1.93); BILIRUBIN,TOTAL 0.2 MG/DL (0.2-1.0); CALCIUM LEVEL 8.6 MG/DL (8.8-10.2); CREATININE FOR GFR 1.27 MG/DL (0.55-1.02); MAGNESIUM LEVEL 1.7 MG/DL (1.8-2.4); POTASSIUM SERUM 4.8 MEQ/L (3.5-5.1); TOTAL PROTEIN 6.4 GM/DL (6.4-8.2)
[2017-02-26] MEDS ORDERED: ceFAZolin SOD 1 GM in D5W MINI-BAG PLUS 50 ML IV SCH (06:00)
[2017-02-26] MEDS: HumaLOG INSULIN (NovoLOG) PER UNIT SC SCH ×4 (07:27→21:00)
[2017-02-26] MEDS: LEVEMIR (INSULIN DETEMIR) 1 UNITS/0.01ML SC SCH ×2 (07:27→21:50)
[2017-02-26] MEDS ORDERED: ISOVUE-300 61% 50ML VIAL (Q9967) As Ordered ONE (07:36)
[2017-02-26] MEDS ORDERED: ceFAZolin 1GM INJ (J0690) As Ordered ONE (07:36)
[2017-02-26] MEDS ORDERED: LIDOCAINE 1% SDV INJ 30 ML VIAL As Ordered ONE (08:37)
[2017-02-26] MEDS ORDERED: diphenhydrAMINE INJ 50MG/ML VIAL (J1200) As Ordered ONE (08:47)
[2017-02-26] MEDS ORDERED: fentaNYL 100 MCG/2 ML INJECTION (J3010) As Ordered ONE (08:47)
[2017-02-26] MEDS ORDERED: PROPOFOL 500 MG/50 ML VIAL As Ordered ONE (08:47)
[2017-02-26] MEDS: AMIODARONE 200 MG TAB (PACERONE) PO SCH ×5 (09:00→21:51)
[2017-02-26] MEDS ORDERED: DIGOXIN 0.125 MG TAB PO SCH (09:00)
[2017-02-26] MEDS: VENLAFAXINE 37.5 MG TAB PO SCH ×2 (09:00→12:50)
--- NOTE | 2017-02-26 10:57 | REP ---
6 minutes 50 seconds of fluoroscopy time was used for pacemaker insertion of which there is a single fluoroscopically generated spot film to review showing a portion of the leads of a dual chamber bipolar pacemaker device which appear appropriate in position. Signed by Chirag Arrieta DO 02/26/2017 11:06 A
[2017-02-26] MEDS ORDERED: ATENOLOL 25 MG TAB As Ordered ONE (11:43)
[2017-02-26] MEDS: ATENOLOL 25 MG TAB PO SCH ×2 (11:45→21:51)
--- NOTE | 2017-02-26 12:09 | REP ---
Status post pacemaker insertion. PRIORS: 02/24/2017. Since the last examination, a dual-chamber bipolar pacemaker device has been placed. The leads are contiguous and appropriate. The heart is not enlarged and the lung bolden are clear. The osseous structures are unchanged. IMPRESSION: Findings as described above. Signed by Chirag Arrieta DO 02/26/2017 02:09 P
--- NOTE | 2017-02-26 12:13 | RO ---
DATE OF OPERATION: 02/26/2017 PREOPERATIVE DIAGNOSIS: Sick sinus syndrome/tachycardia-bradycardia syndrome. POSTOPERATIVE DIAGNOSIS: Sick sinus syndrome/tachycardia-bradycardia syndrome. FINDINGS: Sick sinus syndrome/tachycardia-bradycardia syndrome. PROCEDURE PERFORMED: Implantation of a permanent dual-chamber pacemaker ([employer]). SURGEON: Charlie Martin MD APPLICATIONS TESTER: None. ANESTHESIA: Lidocaine 1% local/monitored anesthetic care. The patient premedicated with Benadryl because of reported history of allergy to LIDOCAINE. SPECIMENS: None. ESTIMATED BLOOD LOSS: Less than 25 mL. BLOOD PRODUCTS REPLACED: None. DRAINS: None. COMPLICATIONS: None. DESCRIPTION OF PROCEDURE: Procedure description: The patient was prepped and draped over the left pectoral region, and 3M Ioban film was applied. Lidocaine 1% was used for local anesthetic. A left subclavian venogram was performed twice, each time injecting 15 mL consisting of 2/3 contrast/1/3 normal saline. This was used to obtain a left subclavian venogram in real-time, during which time venous access into the left subclavian vein was obtained with a needle that came with the #6-[place] kit. A guidewire was then placed and the needle removed. Next, I made an incision approximately 2.5 inches in length with a PEAK PlasmaBlade 1 cm below the entry site of the guidewire. The PEAK PlasmaBlade was then used to get through the fatty layer and the fibrous Franci fascia. I then formed the pacemaker pocket in a caudal direction using blunt dissection, using two fingers. Next, the guidewire was pulled through the skin into the incision site. Next, I used a micropuncture needle to get separate venous access at the level of the pectoral muscle into the subclavian vein using fluoroscopy and the first guidewire as a radiologic marker. This was then guidewire exchanged for the guidewire that came with the other #6-[place] introducer. A #6-[place] introducer was placed over the more lateral of the guidewires and served as venous access for the ventricle lead. The ventricle lead was placed under fluoroscopic guidance into the right ventral apex position, where it was secured with a total of ten turns. This position was found be electrically and anatomically satisfactory, and no diaphragm stimulation could be palpated on either side of the diaphragm with 10 volts high-output pacing. Next, the #6-[place] sheath was broken apart and removed, and the ventricle lead was secured to the pectoral muscle using #0 Ethibond suture material with each suture first tied to the pectoral muscle and then around a notch on the sleeve and a total of three sutures to secure the lead was applied. Next, the other #6-[place] sheath was placed over the more medial of the guidewires and passed into the subclavian vein. This sheath was used for access for the atrial lead. The atrial lead was placed under fluoroscopic guidance into the right atrial appendage position, where it was secured with a total of ten turns. This position was found to be electrically and anatomically satisfactory , and no diaphragm stimulation could be palpated on either side with 10 volts high-output pacing. The sheath was then broken apart and removed, and the atrial lead was secured to the pectoral muscle with the supplied tie-down sleeves, again with three sutures consisting of #0 Ethibond. Next, another #0 Ethibond suture was placed at the pectoral muscle to serve as the tie-down for the pacemaker pulse generator. Next, the ventricle and atrial leads were plugged into their respective ports in the header of the pacemaker pulse generator, and each one was secured by tightening the set screws with the hex screwdriver. Next, the excess lead material was coiled underneath the pulse generator and placed into the pacemaker pocket along with the pacemaker pulse generator, such that the excess lead material was below the pulse generator and the pulse generator on top. The pulse generator was then secured to the pectoral muscle with the previously-placed #0 Ethibond suture. The deep layer was closed using individual sutures consisting of #2-0 Vicryl. Three additional #3-0 Vicryl sutures were used to help approximate the more superficial layer. Next, the incision was closed with #4-0 Biosyn with the first medial stitch placed deep into the incision and the last stitch tied at the level of the skin lateral to the incision. Next, two layers of Dermabond was applied. The procedure was tolerated well without any immediate complications. The pacemaker pulse generator implanted was a [employer] Assurity MRI with model number [id number] with serial number [id number]. The atrial lead implanted was a [employer] Tendril STS model number 2088TC-46 with serial number [id number]. Testing in the operating room for the atrial lead with the PSA data showed P wave of 4.8 volts with capture of 1.4 volts at 0.4 ms and lead impedance of 406 ohms. Device base testing in the operating room showed P waves of greater than 5.0 mV with lead impedance of 440 ohms and capture of 1.5 volts at 0.4 ms. The ventricle lead implanted was a [employer] Tendril STS model number 2088TC-52 with serial number [id number]. Testing in the operating room for the ventricle lead with the PSA analyzer showed capture of 1.0 volts at 0.4 ms with R wave amplitude of 7.8 mV and lead impedance of 667 ohms.. device base testing in the operating room for the ventricle lead showed capture threshold of 1.0 volts at 0.4 ms with lead impedance of 640 ohms and R wave amplitude of 6.4 mV. [facility]
[2017-02-26] MEDS ORDERED: fentaNYL 100 MCG/2 ML INJECTION (J3010) IV PRN (12:15)
[2017-02-26] MEDS ORDERED: LR 1,000 ML IV SCH (12:15)
[2017-02-26] MEDS ORDERED: ONDANSETRON 4MG/2ML VIAL (J2405) IV PRN (12:15)
--- NOTE | 2017-02-26 12:45 | ECGEPIP ---
Stationary ECG Study [facility] Test Date: 2017-02-25 Pat Name: ADAM ANN Department: Room: [place] [address] Gender: F Medical Transcriptionist: ROGELIO : 1945 Requested By: TRUONG TOBAR Order Number: [id number] Reading MD: Charlie Martin Measurements Intervals [place] Rate: 144 P: [place]: 0 QRS: 47 QRSD: 86 T: 91 QT: 264 QTc: 409 Interpretive Statements ATRIAL FLUTTER WITH RAPID VENTRICULAR RESPONSE LOW QRS VOLTAGE IN EXTREMITY LEADS MODERATE ST DEPRESSION Electronically Signed On 02-26-2017 12:44:57 EDT by Charlie Maritn
[2017-02-26] MEDS: FOLIC ACID 1 MG TAB PO SCH (12:50)
[2017-02-26] MEDS: ASCORBIC ACID 250 MG TAB PO SCH ×2 (12:50→21:00)
[2017-02-26] MEDS: QUEtiapine FUMARATE 25 MG TAB PO SCH ×2 (12:51→21:00)
--- NOTE | 2017-02-26 12:53 | ECGEPIP ---
Stationary ECG Study [facility] Test Date: 2017-02-25 Pat Name: ADAM ANN Department: Room: [place] [address] Gender: F Childcare Worker: CARINA : 1945 Requested By: HOLLAND FRIEDMAN Order Number: [id number] Reading MD: Charlie Martin Measurements Intervals [place] Rate: 78 P: 11 NC: 142 QRS: 21 QRSD: 95 T: 96 QT: 339 QTc: 388 Interpretive Statements SINUS RHYTHM LOW QRS VOLTAGE IN EXTREMITY LEADS MINIMAL ST DEPRESSION ABNORMAL QRS-T ANGLE Electronically Signed On 02-26-2017 12:53:30 EDT by Charlie Martin
[2017-02-26] MEDS: FAMOTIDINE 20 MG TAB PO SCH ×2 (12:55→21:00)
[2017-02-26] MEDS: ACETAMINOPHEN TAB 650MG DOSE (2X325MG) PO SCH ×2 (12:55→21:50)
--- NOTE | 2017-02-26 13:53 | ECGEPIP ---
Stationary ECG Study [facility] Test Date: 2017-02-26 Pat Name: ADAM ANN Department: Room: [place] [address] Gender: F Hydration Plant Operator: YUMI : 1945 Requested By: Charlie Martin Order Number: [id number] Reading MD: Charlie Martin Measurements Intervals [place] Rate: 89 P: 26 [place]: 138 QRS: 24 QRSD: 80 T: 72 QT: 304 QTc: 371 Interpretive Statements SINUS RHYTHM LOW QRS VOLTAGE IN EXTREMITY LEADS Nonspecific ST-T abnormalities. No significant change compared with 02/25/2017 at 1217 hours. Electronically Signed On 02-26-2017 13:53:09 EDT by Charlie Martin
--- NOTE | 2017-02-26 16:26 | IPN ---
DATE: 02/26/2017 SUBJECTIVE: Patient is seen and examined in the room today after her pacemaker placement. Patient is resting comfortably in bed, no apparent sign of acute distress. Vital signs are stable. I also had a chance to talk to patient's daughter, the healthcare proxy, Felipa, all questions are answered. OBJECTIVE: VITAL SIGNS: Temperature 97.3, pulse 70, respirations 18, blood pressure 123/53, pulse oximetry 95% in room air. GENERAL: No sign of acute distress, resting comfortably in bed. HEENT: Normocephalic, atraumatic. Extraocular motors grossly intact. CARDIOVASCULAR: Positive S1, S2, regular rate. LUNGS: Clear to auscultation bilaterally. ABDOMEN: Soft, nontender, nondistended. Bowel sounds present. No rebound. No guarding. EXTREMITIES: No edema. No sign of cyanosis. LABORATORY DATA: WBC 5.7, hemoglobin 11, hematocrit 35.4, platelet count 245. Sodium 143, potassium 4.5, chloride 114, carbon dioxide 23, BUN 51, creatinine 1.27, GFR 44, fasting glucose 131, calcium 8.6, magnesium 1.7, total bilirubin 0.2, AST 21, ALT 21, alkaline phosphatase 49, total protein 6.4, albumin 3. ASSESSMENT AND PLAN: 1. Sick sinus syndrome. Patient just had pacemaker placement with Dr. Martin. Will continue to monitor patient on telemetry. 2. Paroxysmal atrial fibrillation with rapid ventricular response (RVR). Currently heart rate is in satisfactory range. Patient is taking atenolol 25 mg by mouth twice a day and amiodarone 200 mg by mouth four times a day. 3. Acute kidney injury secondary to poor oral intake. Patient had IV fluid. Renal function is improving. 4. Hyperkalemia secondary to poor oral intake, resolved. 5. History of insulin-dependent diabetes. On Levemir, covering with sliding scale. Patient will be on consistent carbohydrate diet. 6. History of dementia. The healthcare proxy is patient's daughter, Felipa. 7. Urinary tract infection. Urine culture came back positive for Escherichia (E) coli. Patient is currently on Rocephin. 8. Deep venous thrombosis (DVT) prophylaxis. Patient is on thromboembolism deterrents (TEDs) and sequential compression device.
--- NOTE | 2017-02-26 19:54 | ECGEPIP ---
Stationary ECG Study [facility] - [facility] Test Date: 2017-02-24 Pat Name: ADAM ANN Department: Room: - Gender: F Application Counselor: KATELYNN : 1945 Requested By: SHASTA KELLY Order Number: [id number] Reading MD: Fede Singh Measurements Intervals [place] Rate: 148 P: [place]: 0 QRS: 55 QRSD: 90 T: 92 QT: 260 QTc: 409 Interpretive Statements ATRIAL FIBRILLATION WITH RAPID VENTRICULAR RESPONSE MODERATE ST DEPRESSION CW 10/18/16 RHTYHM CHANGE RATE ELEVATED DIFFUSE ST T WAVE CHANGES - CONSIDER ISCHEMIA CLINICALLY CORRELATE Electronically Signed On 02-26-2017 19:54:29 EDT by Fede Singh
[2017-02-26] MEDS: LATANOPROST 0.005% OPHTH SOLN 2.5 ML OU SCH (21:00)
[2017-02-27 05:00] VITALS: BP 148/62
[2017-02-27 05:55] LABS: MEAN CORPUSCULAR HEMOGLOBIN 28.4 pg (27.0-33.0); MEAN CORPUSCULAR HGB CONC 32.4 g/dl (32.0-36.5); MEAN CORPUSCULAR VOLUME 87.7 fl (80.0-96.0); RED CELL DISTRIBUTION WIDTH 13.7 % (11.5-14.5)
[2017-02-27 06:18] LABS: ALBUMIN 2.7 GM/DL (3.2-5.2); ALBUMIN/GLOBULIN RATIO 0.77 (1.00-1.93); BILIRUBIN,TOTAL 0.2 MG/DL (0.2-1.0); CALCIUM LEVEL 8.1 MG/DL (8.8-10.2); CREATININE FOR GFR 1.22 MG/DL (0.55-1.02); GLOMERULAR FILTRATION RATE 46.1 (>39); MAGNESIUM LEVEL 1.6 MG/DL (1.8-2.4); POTASSIUM SERUM 4.6 MEQ/L (3.5-5.1); TOTAL PROTEIN 6.2 GM/DL (6.4-8.2)
[2017-02-27] MEDS: cefTRIAXone SOD 2 GM in D5W MINI-BAG PLUS 50 ML IV SCH ×2 (06:42→19:09)
[2017-02-27] MEDS: PHENAZOPYRIDINE 100 MG TAB PO SCH ×3 (06:42→22:03)
[2017-02-27 08:00] VITALS: BP 155/92
[2017-02-27] MEDS: LEVEMIR (INSULIN DETEMIR) 1 UNITS/0.01ML SC SCH ×2 (08:48→22:02)
[2017-02-27] MEDS: HumaLOG INSULIN (NovoLOG) PER UNIT SC SCH ×4 (08:48→21:00)
[2017-02-27] MEDS: FOLIC ACID 1 MG TAB PO SCH (08:48)
[2017-02-27] MEDS: FAMOTIDINE 20 MG TAB PO SCH ×2 (08:48→22:03)
[2017-02-27] MEDS: ASCORBIC ACID 250 MG TAB PO SCH ×2 (08:49→22:03)
[2017-02-27] MEDS: ATENOLOL 25 MG TAB PO SCH ×2 (08:49→22:04)
[2017-02-27] MEDS: AMIODARONE 200 MG TAB (PACERONE) PO SCH ×4 (08:49→22:04)
[2017-02-27] MEDS: QUEtiapine FUMARATE 25 MG TAB PO SCH ×2 (08:49→22:03)
[2017-02-27] MEDS: ACETAMINOPHEN TAB 650MG DOSE (2X325MG) PO SCH ×3 (08:50→22:03)
--- NOTE | 2017-02-27 09:38 | REP ---
Status post pacemaker insertion. COMPARISON: 02/26/2017 Dual chamber bipolar pacemaker device in place. The leads are contiguous and appropriate. The cardiomediastinal silhouette unchanged. The heart is not enlarged. The lung bolden are clear and stable. The osseous structures are unchanged. IMPRESSION: As above. Signed by Chirag Arrieta DO 02/27/2017 09:40 A
[2017-02-27 12:00] VITALS: BP 152/78
--- NOTE | 2017-02-27 14:23 | ECHO ---
DATE OF PROCEDURE: 02/27/2017 REFERRING PHYSICIAN: Dr. Charlie Martin. INDICATION: Paroxysmal atrial fibrillation. HEIGHT: 61 inches. WEIGHT: 136 pounds. MEASUREMENTS: Aortic root - 2.8 cm Proximal ascending aorta - 2.9 cm Left atrium - 3.8 cm Left ventricle diastole - 3.8 cm Left ventricle systole - 2.4 cm Ventricular septum - 1.11 cm Posterior wall - 1.15 cm LVOT - 2.1 cm Right ventricle - 3.6 cm. DOPPLER MEASUREMENTS: Aortic valve velocity - 205 cm/s LVOT velocity - 125 cm/s LVOT VTI - 27.1 cm/s Mitral E velocity - 84.5 cm/s Mitral A velocity -126 cm/s Mitral deceleration time - 280 ms E/A velocity approximately 20 cm/s at 70 beats per minute. Very mild tricuspid regurgitation. Estimated right ventricle systolic pressure - 37 mmHg Estimated right atrial pressure - 5 mmHg Pulmonary artery systolic pressure - 39 mmHg by pulmonary acceleration time method. MITRAL ANNULAR TISSUE DOPPLER: E prime lateral - 3.6 cm/s E prime septal - 3.5 cm/s DESCRIPTION: The rhythm was atrial paced at 70 beats per minute. No pericardial effusion. Image quality was fair to poor. CONCLUSIONS: 1. Normal left ventricle internal dimensions and wall thickness. Normal LV systolic function. LVEF of 65% by visual estimate. No regional wall motion abnormalities. 2. Grade 1 LV diastolic dysfunction (impaired relaxation filling pattern). No significant E/A effusion at 70 beats per minute atrial paced. 3. Moderate aortic valve sclerosis of a three-cuspid aortic valve. No aortic stenosis or aortic regurgitation. 4. Moderate mitral annular calcification. No mitral stenosis or mitral regurgitation. 5. Mild left atrial dilatation. 6. Suggestive of mild elevation of pulmonary artery systolic pressure and estimated right ventricle systolic pressure. Very mild tricuspid regurgitation. 7. Presence of endocardial right atrial and right ventricle pacemaker leads with the right ventricle lead coursing towards the right ventricle apex.
[2017-02-27 16:00] VITALS: BP 142/75
--- NOTE | 2017-02-27 16:43 | IPN ---
DATE: 02/27/2017 SUBJECTIVE: Patient seen and examined in the room today. Patient remains very fatigued, not able to maintain prolonged alertness and awakeness to answer the questions. However, the patient denies any acute distress. Denies any significant pain. The patient is breathing comfortably on room air. Denies any chest pain. OBJECTIVE: VITAL SIGNS: Temperature is 98.4, pulse 72, respiratory rate 18, blood pressure 155/92, pulse oximetry 96% on room air. GENERAL: Fatigued. No sign of distress. The patient is alert and awake. The patient is partially oriented. Sign of dementia. HEENT: Normocephalic, atraumatic. Extraocular motor grossly intact. CARDIOVASCULAR: Positive S1, S2. Regular rate. LUNGS: Clear to auscultation bilaterally. ABDOMEN: Soft, nontender, nondistended. Bowel sounds present. No rebound, no guarding. EXTREMITIES: There is a dressing located on left upper chest. No active drainage and no active bleeding from the dressing. Some discomfort upon palpation near the surrounding area. No lower extremity edema. No sign of cyanosis. LABORATORY DATA: WBC is 7, hemoglobin 10.2, hematocrit 31.5, platelet count 215. Sodium 144, potassium 4.5, chloride 115, carbon dioxide 22, BUN 29, creatinine is 1.22. GFR is 46.1. Fasting glucose 129, calcium 8.1, magnesium 1.6. C-reactive protein is 2.25. Total protein 6.2, albumin 2.7. ASSESSMENT AND PLAN: 1. Sick sinus syndrome. The patient just had a dual-chamber pacemaker placed by Dr. Martin on 02/26/2017. The patient is currently monitored on telemetry. 2. Paroxysmal atrial fibrillation with rapid ventricular rate. The patient is currently taking atenolol 25 mg by mouth twice a day, amiodarone 200 mg four times a day. 3. Acute on chronic kidney injury secondary to poor oral intake. The patient is on intravenous (IV) fluid. Renal function continues to show improvement. 4. Hyperkalemia, resolved. 5. History of insulin-dependent diabetes on Levemir, covered with sliding scale. The patient will have a consistent carbohydrate diet as tolerated. 6. History of dementia. The patient's healthcare proxy is her two daughters, Felipa and Harmony. 7. Urinary tract infection. The patient is on Rocephin. Culture came back positive for Escherichia (E.) coli. 8. Deep venous thrombosis (DVT) prophylaxis, on thromboembolism deterrent stockings (TEDs), sequential compression devices.
[2017-02-27] MEDS: MAG SULF 1GM/100ML (MAG RUN) 1 GM in APPROPRIATE DILUENT 1 EA IV SCH ×2 (16:55→18:05)
[2017-02-27] MEDS: ISOSORBIDE MONONITRATE 10MG TABLET PO SCH (16:59)
[2017-02-27 20:00] VITALS: BP 162/76
[2017-02-27] MEDS: LATANOPROST 0.005% OPHTH SOLN 2.5 ML OU SCH (22:04)
[2017-02-28] VITALS: BP 122/55
[2017-02-28 04:00] VITALS: BP 141/59
[2017-02-28] MEDS: ISOSORBIDE MONONITRATE 10MG TABLET PO SCH (06:11)
[2017-02-28] MEDS: cefTRIAXone SOD 2 GM in D5W MINI-BAG PLUS 50 ML IV SCH (06:11)
[2017-02-28] MEDS: PHENAZOPYRIDINE 100 MG TAB PO SCH (06:11)
[2017-02-28 06:53] LABS: ALBUMIN 2.7 GM/DL (3.2-5.2); ALBUMIN/GLOBULIN RATIO 0.9 (1.00-1.93); BILIRUBIN,TOTAL 0.2 MG/DL (0.2-1.0); CALCIUM LEVEL 8.3 MG/DL (8.8-10.2); CREATININE FOR GFR 1.19 MG/DL (0.55-1.02); GLOMERULAR FILTRATION RATE 47.5 (>39); MAGNESIUM LEVEL 2.4 MG/DL (1.8-2.4); POTASSIUM SERUM 4.6 MEQ/L (3.5-5.1); TOTAL PROTEIN 5.7 GM/DL (6.4-8.2)
[2017-02-28] MEDS: HumaLOG INSULIN (NovoLOG) PER UNIT SC SCH ×2 (07:30→12:39)
[2017-02-28 08:00] VITALS: BP 137/58
[2017-02-28 09:00] LABS: MEAN CORPUSCULAR HEMOGLOBIN 28.1 pg (27.0-33.0); MEAN CORPUSCULAR HGB CONC 31.5 g/dl (32.0-36.5); MEAN CORPUSCULAR VOLUME 89.2 fl (80.0-96.0); RED CELL DISTRIBUTION WIDTH 13.7 % (11.5-14.5); WHITE BLOOD COUNT 7.6 K/mm3 (4.0-10.0)
[2017-02-28] MEDS ORDERED: CEFD1CAP8 PO (09:26)
[2017-02-28] MEDS ORDERED: ISOS10TAB PO (09:26)
[2017-02-28] MEDS ORDERED: ATEN25TA PO (09:26)
[2017-02-28] MEDS ORDERED: AMIO0.1T PO (09:26)
[2017-02-28 09:51] VITALS: BP 137/58
[2017-02-28] MEDS: FAMOTIDINE 20 MG TAB PO SCH (09:51)
[2017-02-28] MEDS: ATENOLOL 25 MG TAB PO SCH (09:51)
[2017-02-28] MEDS: ASCORBIC ACID 250 MG TAB PO SCH (09:51)
[2017-02-28] MEDS: FOLIC ACID 1 MG TAB PO SCH (09:51)
[2017-02-28] MEDS: QUEtiapine FUMARATE 25 MG TAB PO SCH (09:51)
[2017-02-28] MEDS: AMIODARONE 200 MG TAB (PACERONE) PO SCH ×2 (09:51→12:39)
[2017-02-28] MEDS: ACETAMINOPHEN TAB 650MG DOSE (2X325MG) PO SCH (09:52)
[2017-02-28] MEDS: LEVEMIR (INSULIN DETEMIR) 1 UNITS/0.01ML SC SCH (09:53)
[2017-03-01] MEDS ORDERED: AMIODARONE 200 MG TAB (PACERONE) PO SCH (09:00)
--- NOTE | 2017-03-08 20:43 | DSES ---
DATE OF ADMISSION: 02/24/2017 DATE OF DISCHARGE: 02/28/2017 CONSULTANTS: Electronic Controls Repairer Supervisor, Dr. Martin. PROCEDURES: Pacemaker insertion by Dr. Martin. COMPLICATIONS: None. ADMISSION/DISCHARGE DIAGNOSES: 1. Sick sinus syndrome. 2. Paroxysmal atrial fibrillation with rapid ventricular rate. 3. Pacemaker placement. 4. Acute on chronic kidney secondary to poor oral intake. 5. Hyperkalemia. 6. Insulin-dependent diabetes, Levemir. 7. History of dementia. 8. Urinary tract infection. PRIMARY CARE PROVIDER: Dr. Saucedo. HOSPITALIZATION COURSE: Patient is a 71-year-old female who was transferred from [facility] to [facility] on 02/24/2017 with confusion and poor oral intake. During the hospitalization course, patient was found to have acute on chronic kidney injury and atrial fibrillation. Patient was given intravenous (IV) heart rate control medication for patient's atrial fibrillation and due to patient's mental status, patient's medical condition was discussed with patient's health proxy, Mrs. Felipa Byrne. Later, patient had a positive urinalysis. Urine culture also obtained. Patient was started on empirical antibiotics of Rocephin. When floor was monitored, patient was found to have sick sinus syndrome and Dr. Martin was contacted and informed consent was obtained from the family members and patient had a pacemaker placement by Dr. Martin on 02/26/2017. Patient tolerated the procedure well without any complications. Patient is continued to be monitored on telemetry. Medication is also being adjusted per Dr. Martin's recommendations. On 02/28/2017, patient was determined cleared by cardiology. Patient was determined medically stable for discharged. OBJECTIVE: VITAL SIGNS: Temperature 98.8, pulse 69, respirations 18, blood pressure 137/58, pulse oximetry 96% on room air. LABORATORY DATA: WBC 7.6, hemoglobin 10.8, hematocrit 34.3, platelet count 179. Sodium 143, potassium 4.6, chloride 113, carbon dioxide 21, BUN 28, creatinine 1.19, GFR 47.5, fasting glucose 101, calcium 8.3, magnesium 2.4. Total bilirubin 0.2, AST 23, ALT 15, alkaline phosphatase 47, total protein 5.7, albumin 2.7. Urinalysis 02/24/2017 was positive. Urine culture on 02/24/2017 showed positive Escherichia (E) coli. IMAGING STUDIES: Chest x-ray 02/24/2017 showed no acute pulmonary disease. Renal ultrasound 02/24/2017 showed atrophy of the left kidney 8.7 cm, with the right kidney 9.7 cm in length. No hydronephrosis or hydroureter either site. Sinus lipomatosis both sides without masses or visible stones. DISCHARGE MEDICATION: - amiodarone 100 mg by mouth daily - atenolol 25 mg by mouth twice a day - cefdinir 300 mg by mouth twice a day - isosorbide mononitrate 10 mg by mouth twice a day - Tylenol 650 mg by mouth twice a day - Artificial Tears 2 drops both eyes four times a day as needed - bisacodyl 10 mg per rectum daily as needed for constipation - Decara 1000 units by mouth once weekly - Senna-S one tablet by mouth twice a day as needed for constipation - folic acid 1 mg by mouth daily - glucagon 1 mg intramuscularly (IM) as needed for hypoglycemia - Haldol 1 mg IM every 6 hours as needed for agitation - Levemir 10 units subcutaneously twice a day - latanoprost one drop both eyes nightly - melatonin 5 mg by mouth at bedtime - metformin 750 mg by mouth twice a day - milk of magnesia 30 mL by mouth daily as needed constipation - Myrbetriq 50 mg by mouth daily - nystatin powder topically twice a day as needed for rash/itching - promethazine 25 mg by mouth every 6 hours as needed for nausea - Seroquel 25 mg by mouth twice a day - ranitidine 150 mg one tablet by mouth daily - enema per rectum daily as needed for constipation - spironolactone 25 mg by mouth daily - torsemide 10 mg by mouth daily - venlafaxine 75 mg by mouth daily DISCHARGE INSTRUCTIONS: Discharge patient to [facility] home. Activity as tolerated. Consistent carbohydrate diet and low salt diet as tolerated. Patient should follow with primary care physician, Dr. Saucedo, within one week. DISCHARGE TIME: Greater than 30 minutes.
== END 2017-02-28 13:24 | DRG 243 ==
LOC: M ED 14:07 → M ED INP 17:54 → M PCU 02-25 00:48
PROVIDERS: ADMIT Internal Medicine; ATTEND Internal Medicine
PROC: 02HK3JZ Insertion of Pacemaker Lead into Right Ventricle, Percutaneous Approach (ICD-10-PCS; 2017-02-26)
PROC: 02H63JZ Insertion of Pacemaker Lead into Right Atrium, Percutaneous Approach (ICD-10-PCS; 2017-02-26)
PROC: 0JH606Z Insertion of Pacemaker, Dual Chamber into Chest Subcutaneous Tissue and Fascia, Open Approach (ICD-10-PCS; principal; 2017-02-26 08:00)
DX: I48.0 Paroxysmal atrial fibrillation (principal); N39.0 Urinary tract infection, site not specified; N17.9 Acute kidney failure, unspecified; I69.354 Hemiplegia and hemiparesis following cerebral infarction affecting left non-dominant side; E11.40 Type 2 diabetes mellitus with diabetic neuropathy, unspecified; N18.3 Chronic kidney disease, stage 3 (moderate); F03.90 Unspecified dementia, unspecified severity, without behavioral disturbance, psychotic disturbance, mood disturbance, and anxiety; I49.5 Sick sinus syndrome; Z66 Do not resuscitate; E87.5 Hyperkalemia; B96.29 Other Escherichia coli [E. coli] as the cause of diseases classified elsewhere; Z79.899 Other long term (current) drug therapy; I12.9 Hypertensive chronic kidney disease with stage 1 through stage 4 chronic kidney disease, or unspecified chronic kidney disease; Z86.73 Personal history of transient ischemic attack (TIA), and cerebral infarction without residual deficits; Z88.8 Allergy status to other drugs, medicaments and biological substances; E87.6 Hypokalemia; M19.90 Unspecified osteoarthritis, unspecified site

== ENCOUNTER → 2017-02-24 | Outpatient (REF) | payer MEDICARE, MEDICAID ==
[~2017-02-24] MED LIST changes: +AMIO0.1T PO; +ATEN25TA PO; +CEFD1CAP8 PO; -COLA100C PO; +COLA100C3 PO; +DECA1CAP2 PO; +DULC10SU2 PR; +ENEMENE3 PR; +GLUC1KIT IM; +GLUC4CHW PO; +HALD5INJ2 IM; +ISOS10TAB PO; +PHEN1SUP6 PR; +PROM25TA PO; +RANI1TAB38 PO; +SENN8.6T7 PO; +SERO1TAB3 PO; -SERT-141 PO; +SERT50TA PO; +SPIR25TA2 PO; +TORS10TA3 PO; +VENL75TA2 PO
== END ==
LOC: SKLAB6 07:00
PROVIDERS: ATTEND Internal Medicine
DX: E11.9 Type 2 diabetes mellitus without complications (principal)

== ENCOUNTER → 2017-02-24 | Outpatient (REF) | payer MEDICARE, MEDICAID ==
[2017-02-24 09:19] LABS: MEAN CORPUSCULAR HGB CONC 32.5 g/dl (32.0-36.5); MEAN CORPUSCULAR VOLUME 86.3 fl (80.0-96.0); RED CELL DISTRIBUTION WIDTH 13.1 % (11.5-14.5); WHITE BLOOD COUNT 7.8 K/mm3 (4.0-10.0)
[2017-02-24 09:43] LABS: CALCIUM LEVEL 9.6 MG/DL (8.8-10.2); CREATININE FOR GFR 1.86 MG/DL (0.55-1.02); GLOMERULAR FILTRATION RATE 28.4 (>39)
[2017-02-24 09:58] LABS: POTASSIUM SERUM 6.1 MEQ/L (3.5-5.1)
== END ==
LOC: SKLAB6 07:00
PROVIDERS: ATTEND Internal Medicine
DX: I12.9 Hypertensive chronic kidney disease with stage 1 through stage 4 chronic kidney disease, or unspecified chronic kidney disease (principal); E11.9 Type 2 diabetes mellitus without complications; N18.3 Chronic kidney disease, stage 3 (moderate); F03.90 Unspecified dementia, unspecified severity, without behavioral disturbance, psychotic disturbance, mood disturbance, and anxiety

== ENCOUNTER → 2017-03-03 | Outpatient (REF) | payer MEDICARE, MEDICAID ==
[~2017-03-03] MED LIST changes: +AMIO0.1T PO; +ATEN25TA PO; +CEFD1CAP8 PO; +DECA1CAP2 PO; +DULC10SU2 PR; +ENEMENE3 PR; +GLUC1KIT IM; +GLUC4CHW PO; +HALD5INJ2 IM; +ISOS10TAB PO; +PHEN1SUP6 PR; +PROM25TA PO; +RANI1TAB38 PO; +SENN8.6T7 PO; +SERO1TAB3 PO; +SPIR25TA2 PO; +TORS10TA3 PO; +VENL75TA2 PO
[2017-03-03 09:22] LABS: CALCIUM LEVEL 8.6 MG/DL (8.8-10.2); CREATININE FOR GFR 1.19 MG/DL (0.55-1.02); GLOMERULAR FILTRATION RATE 47.5 (>39); POTASSIUM SERUM 4.9 MEQ/L (3.5-5.1)
== END ==
LOC: SKLAB6 07:00
PROVIDERS: ATTEND Internal Medicine
DX: E78.5 Hyperlipidemia, unspecified (principal); I12.9 Hypertensive chronic kidney disease with stage 1 through stage 4 chronic kidney disease, or unspecified chronic kidney disease; N18.3 Chronic kidney disease, stage 3 (moderate)

== ENCOUNTER → 2017-03-24 | Outpatient (REF) | payer MEDICARE, MEDICAID | LOC: SKLAB6 07:00 | PROVIDERS: ATTEND Internal Medicine | DX: E11.9 Type 2 diabetes mellitus without complications (principal) ==

== ENCOUNTER → 2017-03-25 | Outpatient (REF) | payer MEDICARE, MEDICAID ==
[2017-03-25 08:37] LABS: CALCIUM LEVEL 8.6 MG/DL (8.8-10.2); CREATININE FOR GFR 1.7 MG/DL (0.55-1.02); GLOMERULAR FILTRATION RATE 31.5 (>39); POTASSIUM SERUM 5.1 MEQ/L (3.5-5.1)
== END ==
LOC: SKLAB6 07:00
PROVIDERS: ATTEND Internal Medicine
DX: E11.9 Type 2 diabetes mellitus without complications (principal)

== ENCOUNTER → 2017-03-26 | Outpatient (REF) | payer MEDICARE, MEDICAID ==
[2017-03-26 07:21] LABS: CALCIUM LEVEL 8.8 MG/DL (8.8-10.2); CREATININE FOR GFR 1.53 MG/DL (0.55-1.02); GLOMERULAR FILTRATION RATE 35.5 (>39); POTASSIUM SERUM 5.1 MEQ/L (3.5-5.1)
== END ==
LOC: SKLAB6 08:00
PROVIDERS: ATTEND Internal Medicine
DX: E86.0 Dehydration (principal)

== ENCOUNTER → 2017-03-28 | Outpatient (REF) | payer MEDICARE, MEDICAID ==
[2017-03-28 08:47] LABS: CREATININE FOR GFR 1.38 MG/DL (0.55-1.02); POTASSIUM SERUM 4.6 MEQ/L (3.5-5.1)
== END ==
LOC: SKLAB6 08:00
PROVIDERS: ATTEND Internal Medicine
DX: E86.0 Dehydration (principal)

== ENCOUNTER → 2017-03-30 | Outpatient (REF) | payer MEDICARE, MEDICAID | LOC: SKLAB6 14:00 | PROVIDERS: ATTEND Internal Medicine | DX: Z11.2 Encounter for screening for other bacterial diseases (principal) ==

== ENCOUNTER → 2017-03-31 | Outpatient (REF) | payer MEDICARE, MEDICAID ==
[2017-03-31 11:08] LABS: CREATININE FOR GFR 1.84 MG/DL (0.55-1.02); GLOMERULAR FILTRATION RATE 28.7 (>39)
[2017-03-31 11:15] LABS: POTASSIUM SERUM 5.2 MEQ/L (3.5-5.1)
== END ==
LOC: SKLAB6 11:00
PROVIDERS: ATTEND Internal Medicine
DX: N18.3 Chronic kidney disease, stage 3 (moderate) (principal); R29.6 Repeated falls

== ENCOUNTER → 2017-04-01 | Outpatient (REF) | payer MEDICARE, MEDICAID ==
[2017-04-01 07:58] LABS: CREATININE FOR GFR 1.66 MG/DL (0.55-1.02); GLOMERULAR FILTRATION RATE 32.3 (>39); POTASSIUM SERUM 4.8 MEQ/L (3.5-5.1)
== END ==
LOC: SKLAB6 07:00
PROVIDERS: ATTEND Internal Medicine
DX: N18.3 Chronic kidney disease, stage 3 (moderate) (principal)

== ENCOUNTER → 2017-04-21 | Outpatient (REF) | payer MEDICARE, MEDICAID ==
[2017-04-21 10:39] LABS: CHOLESTEROL LEVEL 387 MG/DL (<200); TRIGLYCERIDES LEVEL 651 MG/DL (<150)
== END ==
LOC: SKLAB6 07:00
PROVIDERS: ATTEND Internal Medicine
DX: E11.40 Type 2 diabetes mellitus with diabetic neuropathy, unspecified (principal)

== ENCOUNTER → 2017-04-24 | Outpatient (REF) | payer MEDICARE, MEDICAID | LOC: SKLAB6 10:37 | PROVIDERS: ATTEND Internal Medicine | DX: Z00.00 Encounter for general adult medical examination without abnormal findings (principal); Z12.11 Encounter for screening for malignant neoplasm of colon ==

== ENCOUNTER → 2017-04-29 | Outpatient (REF) | payer MEDICARE, MEDICAID ==
[2017-04-29 10:47] LABS: BASO % 0.4 % (0.0-1.0); EOS # 0.2 K/mm3 (0.0-0.50); EOS % 2.4 % (0.0-3.0); LARGE UNSTAINED CELL # 0.1 K/mm3 (0.0-0.4); LARGE UNSTAINED CELL % 1.1 % (0.0-4.0); LYMPH # 1.1 K/mm3 (1.5-4.5); LYMPH % 15.8 % (24.0-44.0); MEAN CORPUSCULAR HEMOGLOBIN 29.8 pg (27.0-33.0); MEAN CORPUSCULAR HGB CONC 32.4 g/dl (32.0-36.5); MEAN CORPUSCULAR VOLUME 91.8 fl (80.0-96.0); MONO # 0.3 K/mm3 (0.0-0.8); MONO % 4.6 % (0.0-5.0); NEUTROPHILS % 75.6 % (36.0-66.0); PLATELET COUNT, AUTOMATED 219 k/mm3 (150-450); RED CELL DISTRIBUTION WIDTH 14.4 % (11.5-14.5); WHITE BLOOD COUNT 6.6 K/mm3 (4.0-10.0)
[2017-04-29 11:20] LABS: ALBUMIN 3.5 GM/DL (3.2-5.2); CALCIUM LEVEL 9.2 MG/DL (8.8-10.2); CREATININE FOR GFR 1.21 MG/DL (0.55-1.02); GLOMERULAR FILTRATION RATE 46.6 (>39); MAGNESIUM LEVEL 1.9 MG/DL (1.8-2.4); PHOSPHORUS LEVEL 3.1 MG/DL (2.5-4.9); POTASSIUM SERUM 4.9 MEQ/L (3.5-5.1); URIC ACID 7.7 MG/DL (2.6-6.0)
== END ==
LOC: SKLAB6 07:00
PROVIDERS: ATTEND Internal Medicine
DX: E11.9 Type 2 diabetes mellitus without complications (principal); F03.91 Unspecified dementia, unspecified severity, with behavioral disturbance

== ENCOUNTER → 2017-05-14 | Outpatient (REF) | payer MEDICARE, MEDICAID ==
[~2017-05-14] MED LIST changes: -ACET-71 PO; +ACET1TAB16 PO; -APAP325T PO; +APAP325T4 PO; +BACITAB PO; -BACITAB3 PO; +CARV12.5 PO; -COLA100C3 PO; +COLA100C5 PO; +ENEMENE16 PR; -ENEMENE3 PR; +FERR1TAB8 PO; -FERR325T PO; -FOLI1TAB2 PO; +FOLI1TAB4 PO; +LEVA1TAB PO; -LEVA250T PO; -LIDO5DIS36 TD; +LIDO5DIS41 TD; +MAGN400C2 PO; -MELA5TAB14 PO; +MELA5TAB17 PO; +METO1TAB32 PO; -METO25TA74 PO; -MUCI30TA2 PO; +MUCI30TA5 PO; -NYST100024 TOP; +NYST1POW9 TOP; +PERC5TAB12 PO; +QUET1TAB7 PO; -TRIC145T PO; +TRIC145T22 PO; -VESI10TA PO; +VESI10TA2 PO; -ZETI10TA2 PO; +ZETI10TA30 PO
== END ==
LOC: SKLAB6 21:46
PROVIDERS: ATTEND Internal Medicine
DX: E11.9 Type 2 diabetes mellitus without complications (principal)

== ENCOUNTER 2017-05-18 10:10 | Emergency (ER) | payer MEDICARE, MEDICAID ==
[~2017-05-18 10:10] MED LIST changes: -CARV12.5 PO; -MAGN400C2 PO; -PERC5TAB12 PO; -QUET1TAB7 PO
[2017-05-18] MEDS ORDERED: PERCOCET 5MG/325MG TAB PO ONE (12:00)
--- NOTE | 2017-05-18 12:43 | REP ---
Clinical: Trauma. Technique: AP and lateral views of the humerus. Findings: Chronic deformities related to old trauma remains stable. New acute comminuted fracture of the humeral head through proximal metaphysis is appreciated. Impression: Acute comminuted fracture of the proximal humerus. Signed by Triston Vaughn MD 05/18/2017 12:35 P
[2017-05-18 12:44] VITALS: BP 135/79
--- NOTE | 2017-05-18 12:45 | REP ---
Clinical: Trauma. Fall. Technique: Internal rotation, external rotation, and swimmer's view of the right shoulder. Findings: Deformities related to old trauma and arthritic changes are appreciated. There appears to be acute fractures involving the proximal humerus. Acute fractures involving the underlying glenoid rim cannot be excluded. Impression: New, acute fractures involving the proximal humerus. Signed by Triston Vaughn MD 05/18/2017 12:36 P
[2017-09-13] MEDS ORDERED: CARV12.5 PO (17:42)
[2017-09-13] MEDS ORDERED: QUET1TAB7 PO (17:43)
[2017-09-13] MEDS ORDERED: MAGN400C2 PO (17:43)
[2017-09-13] MEDS ORDERED: PERC5TAB12 PO (18:07)
== END 2017-05-18 14:37 | disposition home or self-care (01) ==
LOC: M ED 10:10
DX: S42.201A Unspecified fracture of upper end of right humerus, initial encounter for closed fracture (principal); W19.XXXA Unspecified fall, initial encounter; Y92.129 Unspecified place in nursing home as the place of occurrence of the external cause; Y93.9 Activity, unspecified; Y99.9 Unspecified external cause status; E11.9 Type 2 diabetes mellitus without complications; I10 Essential (primary) hypertension; G30.9 Alzheimer's disease, unspecified; Z82.49 Family history of ischemic heart disease and other diseases of the circulatory system; Z79.4 Long term (current) use of insulin; Z79.899 Other long term (current) drug therapy; Z88.8 Allergy status to other drugs, medicaments and biological substances; Z88.5 Allergy status to narcotic agent

== ENCOUNTER → 2017-05-20 | Outpatient (REF) | payer MEDICARE, MEDICAID ==
[~2017-05-20] MED LIST changes: +CARV12.5 PO; +MAGN400C2 PO; +PERC5TAB12 PO; +QUET1TAB7 PO
[2017-05-20 08:25] LABS: MEAN CORPUSCULAR HEMOGLOBIN 30.3 pg (27.0-33.0); MEAN CORPUSCULAR HGB CONC 33.2 g/dl (32.0-36.5); MEAN CORPUSCULAR VOLUME 91.3 fl (80.0-96.0); RED CELL DISTRIBUTION WIDTH 13.5 % (11.5-14.5); WHITE BLOOD COUNT 9.4 K/mm3 (4.0-10.0)
[2017-05-20 08:42] LABS: CALCIUM LEVEL 9.3 MG/DL (8.8-10.2); CREATININE FOR GFR 1.26 MG/DL (0.55-1.02); GLOMERULAR FILTRATION RATE 44.4 (>39); POTASSIUM SERUM 5.1 MEQ/L (3.5-5.1)
== END ==
LOC: SKLAB6 05:02
PROVIDERS: ATTEND Internal Medicine
DX: R29.6 Repeated falls (principal)

== ENCOUNTER → 2017-05-26 | Outpatient (REF) | payer MEDICARE, MEDICAID ==
[2017-05-26 10:32] LABS: MEAN CORPUSCULAR HEMOGLOBIN 29.7 pg (27.0-33.0); MEAN CORPUSCULAR HGB CONC 32.6 g/dl (32.0-36.5); MEAN CORPUSCULAR VOLUME 91.2 fl (80.0-96.0); RED CELL DISTRIBUTION WIDTH 13.4 % (11.5-14.5); WHITE BLOOD COUNT 8.5 K/mm3 (4.0-10.0)
[2017-05-26 11:23] LABS: ANION GAP 12 MEQ/L (8-16); BLOOD UREA NITROGEN 28 MG/DL (7-18); CALCIUM LEVEL 9.4 MG/DL (8.8-10.2); CARBON DIOXIDE LEVEL 25 MEQ/L (21-32); CHLORIDE LEVEL 100 MEQ/L (98-107); CHOLESTEROL LEVEL 249 MG/DL (<200); CREATININE FOR GFR 1.12 MG/DL (0.55-1.02); GLOMERULAR FILTRATION RATE 50.9 (>39); GLUCOSE, FASTING 295 MG/DL (83-110); POTASSIUM SERUM 4.5 MEQ/L (3.5-5.1); SODIUM LEVEL 137 MEQ/L (136-145); TRIGLYCERIDES LEVEL 469 MG/DL (<150)
== END ==
LOC: SKLAB6 07:00
PROVIDERS: ATTEND Internal Medicine
DX: E11.40 Type 2 diabetes mellitus with diabetic neuropathy, unspecified (principal)

== ENCOUNTER → 2017-06-01 | Outpatient (REF) | payer MEDICARE, MEDICAID ==
[2017-06-01 15:32] LABS: BASO % 0.4 % (0.0-1.0); EOS # 0.2 K/mm3 (0.0-0.50); EOS % 2.7 % (0.0-3.0); LARGE UNSTAINED CELL # 0.1 K/mm3 (0.0-0.4); LARGE UNSTAINED CELL % 1.5 % (0.0-4.0); LYMPH # 1.5 K/mm3 (1.5-4.5); LYMPH % 17.5 % (24.0-44.0); MEAN CORPUSCULAR HEMOGLOBIN 30.1 pg (27.0-33.0); MEAN CORPUSCULAR VOLUME 91.2 fl (80.0-96.0); MONO # 0.3 K/mm3 (0.0-0.8); MONO % 4.1 % (0.0-5.0); NEUTROPHILS # 5.8 K/mm3 (1.8-7.7); NEUTROPHILS % 73.8 % (36.0-66.0); PLATELET COUNT, AUTOMATED 309 k/mm3 (150-450); RED CELL DISTRIBUTION WIDTH 13.6 % (11.5-14.5); WHITE BLOOD COUNT 7.9 K/mm3 (4.0-10.0)
[2017-06-01 15:50] LABS: CALCIUM LEVEL 8.9 MG/DL (8.8-10.2); CREATININE FOR GFR 1.23 MG/DL (0.55-1.02); GLOMERULAR FILTRATION RATE 45.7 (>39); POTASSIUM SERUM 4.6 MEQ/L (3.5-5.1)
== END ==
LOC: SKLAB6 16:31
PROVIDERS: ATTEND Internal Medicine
DX: R35.0 Frequency of micturition (principal); R11.0 Nausea

== ENCOUNTER → 2017-06-06 | Outpatient (REF) | payer MEDICARE, MEDICAID ==
[2017-06-06 09:22] LABS: CALCIUM LEVEL 9.6 MG/DL (8.8-10.2); CREATININE FOR GFR 1.25 MG/DL (0.55-1.02); GLOMERULAR FILTRATION RATE 44.8 (>39); POTASSIUM SERUM 5.1 MEQ/L (3.5-5.1)
== END ==
LOC: SKLAB6 07:00
PROVIDERS: ATTEND Internal Medicine
DX: E11.40 Type 2 diabetes mellitus with diabetic neuropathy, unspecified (principal)

== ENCOUNTER → 2017-06-23 | Outpatient (REF) | payer MEDICARE, MEDICAID | LOC: SKLAB6 07:00 | PROVIDERS: ATTEND Internal Medicine | DX: E11.21 Type 2 diabetes mellitus with diabetic nephropathy (principal) ==

== ENCOUNTER → 2017-08-30 | Outpatient (REF) | payer MEDICARE, MEDICAID | LOC: SKLAB6 03:00 | PROVIDERS: ATTEND Internal Medicine | DX: N18.9 Chronic kidney disease, unspecified (principal) ==

== ENCOUNTER → 2017-09-01 | Outpatient (REF) | payer MEDICARE, MEDICAID ==
[2017-09-01 10:34] LABS: BASO % 0.4 % (0.0-1.0); EOS # 0.2 10^3/uL (0.0-0.50); EOS % 2.2 % (0.0-3.0); IMMATURE GRANULOCYTE % 0.5 % (0-0); LYMPH # 1.7 10^3/uL (1.5-4.5); LYMPH % 22.9 % (24.0-44.0); MEAN CORPUSCULAR HEMOGLOBIN 28.1 pg (27.0-33.0); MEAN CORPUSCULAR HGB CONC 31.8 g/dl (32.0-36.5); MEAN CORPUSCULAR VOLUME 88.5 fl (80.0-96.0); MONO # 0.6 10^3/uL (0.0-0.8); MONO % 7.4 % (0.0-5.0); NEUTROPHILS # 4.9 10^3/uL (1.8-7.7); NEUTROPHILS % 66.6 % (36.0-66.0); PLATELET COUNT, AUTOMATED 256 10^3/uL (150-450); RED CELL DISTRIBUTION WIDTH 13.9 % (11.5-14.5); WHITE BLOOD COUNT 7.4 10^3/uL (4.0-10.0)
[2017-09-01 10:54] LABS: ALBUMIN 3.3 GM/DL (3.2-5.2); ANION GAP 9 MEQ/L (8-16); BLOOD UREA NITROGEN 38 MG/DL (7-18); CALCIUM LEVEL 9.9 MG/DL (8.8-10.2); CARBON DIOXIDE LEVEL 30 MEQ/L (21-32); CHLORIDE LEVEL 98 MEQ/L (98-107); CREATININE FOR GFR 1.21 MG/DL (0.55-1.02); GLOMERULAR FILTRATION RATE 46.6 (>39); GLUCOSE, FASTING 289 MG/DL (83-110); MAGNESIUM LEVEL 1.5 MG/DL (1.8-2.4); PHOSPHORUS LEVEL 4.1 MG/DL (2.5-4.9); POTASSIUM SERUM 4.7 MEQ/L (3.5-5.1); SODIUM LEVEL 137 MEQ/L (136-145)
== END ==
LOC: SKLAB4 08-29 09:57
PROVIDERS: ATTEND Internal Medicine
DX: N18.9 Chronic kidney disease, unspecified (principal)

== ENCOUNTER → 2017-10-27 | Outpatient (REF) | payer MEDICARE, MEDICAID | LOC: SKLAB4 07:06 | PROVIDERS: ATTEND Internal Medicine | DX: D64.9 Anemia, unspecified (principal) ==

== ENCOUNTER → 2017-11-28 | Outpatient (REF) | payer MEDICARE, MEDICAID ==
[2017-11-28 10:44] LABS: TOTAL 25(OH) VITAMIN D 38.9 NG/ML (30.0-100.0)
== END ==
LOC: SKLAB4 12:21
DX: E55.9 Vitamin D deficiency, unspecified (principal)
CPT/HCPCS: 36415

== ENCOUNTER → 2017-12-02 | Outpatient (REF) | payer MEDICARE, MEDICAID ==
[2017-12-02 08:15] LABS: ALBUMIN 3.2 GM/DL (3.2-5.2); ALBUMIN/GLOBULIN RATIO 0.82 (1.00-1.93); ALKALINE PHOSPHATASE 62 U/L (45-117); ALT/SGPT 20 U/L (12-78); ANION GAP 8 MEQ/L (8-16); AST/SGOT 21 U/L (7-37); BILIRUBIN,TOTAL 0.3 MG/DL (0.2-1.0); BLOOD UREA NITROGEN 33 MG/DL (7-18); CALCIUM LEVEL 9.3 MG/DL (8.8-10.2); CARBON DIOXIDE LEVEL 28 MEQ/L (21-32); CHLORIDE LEVEL 102 MEQ/L (98-107); CREATININE FOR GFR 1.03 MG/DL (0.55-1.02); GLOMERULAR FILTRATION RATE 55.9 (>39); GLUCOSE, FASTING 209 MG/DL (83-110); POTASSIUM SERUM 4.3 MEQ/L (3.5-5.1); SODIUM LEVEL 138 MEQ/L (136-145); TOTAL PROTEIN 7.1 GM/DL (6.4-8.2)
== END ==
LOC: SKLAB4 08:00
DX: N18.3 Chronic kidney disease, stage 3 (moderate) (principal)
CPT/HCPCS: 80053

== ENCOUNTER → 2017-12-21 | Outpatient (REF) | payer MEDICARE, MEDICAID | LOC: M RAD 17:50 | DX: M19.011 Primary osteoarthritis, right shoulder (principal) | CPT/HCPCS: 73030 ==

== ENCOUNTER → 2017-12-24 | Outpatient (REF) | payer MEDICAID, MEDICARE | LOC: M RAD 13:42 | DX: Z13.0 Encounter for screening for diseases of the blood and blood-forming organs and certain disorders involving the immune mechanism (principal); M79.601 Pain in right arm | CPT/HCPCS: 93971 ==

== ENCOUNTER → 2017-12-26 | Outpatient (REF) | payer MEDICARE, MEDICAID ==
[2017-12-26 14:22] LABS: BASO % 0.3 % (0.0-1.0); EOS # 0.3 10^3/uL (0.0-0.50); EOS % 2.8 % (0.0-3.0); HEMATOCRIT 37.2 % (36.0-47.0); HEMOGLOBIN 12.1 g/dl (12.0-16.0); IMMATURE GRANULOCYTE % 0.7 % (0-3.0); LYMPH # 1.5 10^3/uL (1.5-4.5); LYMPH % 17.4 % (24.0-44.0); MEAN CORPUSCULAR HEMOGLOBIN 28.9 pg (27.0-33.0); MEAN CORPUSCULAR HGB CONC 32.5 g/dl (32.0-36.5); MONO # 0.7 10^3/uL (0.0-0.8); MONO % 7.9 % (0.0-5.0); NEUTROPHILS # 6.2 10^3/uL (1.8-7.7); NEUTROPHILS % 70.9 % (36.0-66.0); PLATELET COUNT, AUTOMATED 337 10^3/uL (150-450); RED BLOOD COUNT 4.18 10^6/uL (4.00-5.40); RED CELL DISTRIBUTION WIDTH 13.2 % (11.5-14.5); WHITE BLOOD COUNT 8.8 10^3/uL (4.0-10.0)
[2017-12-26 14:39] LABS: TOTAL 25(OH) VITAMIN D 50.6 NG/ML (30.0-100.0)
[2017-12-26 14:45] LABS: ALBUMIN 3.1 GM/DL (3.2-5.2); ANION GAP 13 MEQ/L (8-16); BLOOD UREA NITROGEN 63 MG/DL (7-18); CALCIUM LEVEL 9.6 MG/DL (8.8-10.2); CARBON DIOXIDE LEVEL 27 MEQ/L (21-32); CHLORIDE LEVEL 98 MEQ/L (98-107); GLOMERULAR FILTRATION RATE 33.6 (>39); GLUCOSE, FASTING 341 MG/DL (70-100); MAGNESIUM LEVEL 2.4 MG/DL (1.8-2.4); PHOSPHORUS LEVEL 4.3 MG/DL (2.5-4.9); SODIUM LEVEL 138 MEQ/L (136-145); URIC ACID 10.1 MG/DL (2.6-6.0)
[2017-12-26 14:47] LABS: POTASSIUM SERUM 5.4 MEQ/L (3.5-5.1)
[2017-12-26 15:09] LABS: ESTIMATED AVERAGE GLUCOSE 243 MG/DL (60-110); HEMOGLOBIN A1c 10.1 %
== END ==
LOC: SKLAB4 12:51
DX: N18.9 Chronic kidney disease, unspecified (principal); R73.01 Impaired fasting glucose
CPT/HCPCS: 83735

== ENCOUNTER → 2017-12-30 | Outpatient (REF) | payer MEDICARE, MEDICAID | LOC: SKLAB4 20:22 | DX: S42.324A Nondisplaced transverse fracture of shaft of humerus, right arm, initial encounter for closed fracture (principal); M19.011 Primary osteoarthritis, right shoulder | CPT/HCPCS: 73200 ==

== ENCOUNTER → 2018-01-06 | Outpatient (REF) | payer MEDICARE, MEDICAID ==
[2018-01-06 08:23] LABS: ANION GAP 6 MEQ/L (8-16); BLOOD UREA NITROGEN 77 MG/DL (7-18); CALCIUM LEVEL 9.1 MG/DL (8.8-10.2); CARBON DIOXIDE LEVEL 34 MEQ/L (21-32); CHLORIDE LEVEL 101 MEQ/L (98-107); CREATININE FOR GFR 1.62 MG/DL (0.55-1.30); GLOMERULAR FILTRATION RATE 33.2 (>39); GLUCOSE, FASTING 240 MG/DL (70-100); SODIUM LEVEL 141 MEQ/L (136-145)
== END ==
LOC: SKLAB4 07:10
DX: E87.5 Hyperkalemia (principal)
CPT/HCPCS: 36415

== ENCOUNTER → 2018-01-09 | Outpatient (REF) | payer MEDICARE, MEDICAID ==
[2018-01-09 08:35] LABS: ALBUMIN 3.2 GM/DL (3.2-5.2); ALBUMIN/GLOBULIN RATIO 0.91 (1.00-1.93); ALKALINE PHOSPHATASE 296 U/L (45-117); ALT/SGPT 22 U/L (12-78); ANION GAP 9 MEQ/L (8-16); AST/SGOT 25 U/L (7-37); BILIRUBIN,TOTAL 0.2 MG/DL (0.2-1.0); BLOOD UREA NITROGEN 44 MG/DL (7-18); CARBON DIOXIDE LEVEL 29 MEQ/L (21-32); CHLORIDE LEVEL 100 MEQ/L (98-107); CREATININE FOR GFR 1.23 MG/DL (0.55-1.30); GLOMERULAR FILTRATION RATE 45.6 (>39); GLUCOSE, FASTING 251 MG/DL (70-100); POTASSIUM SERUM 4.2 MEQ/L (3.5-5.1); SODIUM LEVEL 138 MEQ/L (136-145); TOTAL PROTEIN 6.7 GM/DL (6.4-8.2)
[2018-01-09 09:55] LABS: ESTIMATED AVERAGE GLUCOSE 258 MG/DL (60-110); HEMOGLOBIN A1c 10.6 %
== END ==
LOC: SKLAB4 10:57
DX: E11.9 Type 2 diabetes mellitus without complications (principal)
CPT/HCPCS: 80053

== ENCOUNTER → 2018-01-26 | Outpatient (REF) | payer MEDICARE, MEDICAID | LOC: SKLAB4 09:22 | DX: S42.324D Nondisplaced transverse fracture of shaft of humerus, right arm, subsequent encounter for fracture with routine healing (principal) | CPT/HCPCS: 73060 ==

== ENCOUNTER → 2018-01-28 | Outpatient (REF) | payer MEDICARE, MEDICAID ==
[2018-01-28 14:21] LABS: ANION GAP 10 MEQ/L (8-16); BLOOD UREA NITROGEN 45 MG/DL (7-18); CALCIUM LEVEL 8.4 MG/DL (8.8-10.2); CARBON DIOXIDE LEVEL 27 MEQ/L (21-32); CHLORIDE LEVEL 96 MEQ/L (98-107); CREATININE FOR GFR 1.52 MG/DL (0.55-1.30); GLOMERULAR FILTRATION RATE 35.7 (>39); GLUCOSE, FASTING 253 MG/DL (70-100); HEMATOCRIT 33.4 % (36.0-47.0); HEMOGLOBIN 10.7 g/dl (12.0-16.0); MEAN CORPUSCULAR HEMOGLOBIN 28.9 pg (27.0-33.0); MEAN CORPUSCULAR VOLUME 90.3 fl (80.0-96.0); PLATELET COUNT, AUTOMATED 214 10^3/uL (150-450); POTASSIUM SERUM 4.6 MEQ/L (3.5-5.1); RED CELL DISTRIBUTION WIDTH 14.3 % (11.5-14.5); SODIUM LEVEL 133 MEQ/L (136-145); WHITE BLOOD COUNT 5.6 10^3/uL (4.0-10.0)
[2018-01-28 14:52] LABS: INFLUENZA A AMPLIFICATION NEGATIVE (NEGATIVE); INFLUENZA B AMPLIFICATION NEGATIVE (NEGATIVE)
== END ==
LOC: SKLAB4 12:59
DX: R50.9 Fever, unspecified (principal)
CPT/HCPCS: 71045

== ENCOUNTER → 2018-01-29 | Outpatient (REF) | payer MEDICARE, MEDICAID ==
[2018-01-29 09:20] LABS: APPEARANCE, URINE MANUAL TURBID (CLEAR); COLOR, URINE MANUAL YELLOW (YELLOW)
[2018-01-29 09:28] LABS: PH,URINE MAN 5.5 UNITS (5.0 - 7.0)
[2018-01-29 09:29] LABS: BILIRUBIN, URINE MANUAL NEGATIVE (NEGATIVE); BLOOD URINE MANUAL POSITIVE (NEGATIVE); GLUCOSE, URINE (UA) MANUAL 1+(100 MG/DL) mg/dL (NEGATIVE); KETONE, URINE MANUAL NEGATIVE (NEGATIVE); LEUKOCYTE ESTERASE, URINE MAN POSITIVE (NEGATIVE); MICROSCOPIC INDICATED? MAN YES (NO); NITRITE, URINE MANUAL POSITIVE (NEGATIVE); PROTEIN, URINE MANUAL 3+ mg/dL (NEGATIVE); UROBILINOGEN, URINE MANUAL NORMAL (NORMAL)
[2018-01-29 09:32] LABS: BACTERIA, URINE MOD AMOUNT; HYALINE CAST, URINE NONE SEEN /lpf (0-1); MICROSCOPIC EXAM PERFORMED; RBC, URINE NONE SEEN /hpf (0-3); SQUAMOUS EPITHELIAL CELL URINE NONE SEEN /hpf (SMALL AMT); WBC, URINE TNTC /hpf (0-3)
== END ==
LOC: SKLAB4 08:48
DX: R50.9 Fever, unspecified (principal)
CPT/HCPCS: 81000

== ENCOUNTER → 2018-01-31 | Outpatient (REF) | payer MEDICARE, MEDICAID ==
[2018-01-31 08:16] LABS: HEMOGLOBIN 11.5 g/dl (12.0-16.0); MEAN CORPUSCULAR HEMOGLOBIN 28.6 pg (27.0-33.0); MEAN CORPUSCULAR HGB CONC 32.9 g/dl (32.0-36.5); MEAN CORPUSCULAR VOLUME 87.1 fl (80.0-96.0); PLATELET COUNT, AUTOMATED 245 10^3/uL (150-450); RED BLOOD COUNT 4.02 10^6/uL (4.00-5.40); WHITE BLOOD COUNT 5.6 10^3/uL (4.0-10.0)
== END ==
LOC: SKLAB4 07:22
DX: D64.9 Anemia, unspecified (principal)
CPT/HCPCS: 36415

== ENCOUNTER → 2018-03-07 | Outpatient (REF) | payer MEDICARE, MEDICAID ==
[2018-03-07 09:33] LABS: TOTAL 25(OH) VITAMIN D 34.3 NG/ML (30.0-100.0)
== END ==
LOC: SKLAB4 09:15
DX: E55.9 Vitamin D deficiency, unspecified (principal)
CPT/HCPCS: 36415

== ENCOUNTER → 2018-03-15 | Outpatient (REF) | payer MEDICARE, MEDICAID ==
[2018-03-15 21:31] LABS: BEDSIDE GLUCOSE CONFIRMATION 493 MG/DL (LESS THAN 200)
== END ==
LOC: SKLAB4 20:42
DX: R73.9 Hyperglycemia, unspecified (principal)
CPT/HCPCS: 82947

== ENCOUNTER → 2018-05-01 | Outpatient (REF) | payer MEDICARE, MEDICAID ==
[2018-05-01 09:24] LABS: BASO # 0.1 10^3/uL (0.0-0.2); BASO % 0.7 % (0.0-1.0); EOS # 0.2 10^3/uL (0.0-0.50); EOS % 3.1 % (0.0-3.0); HEMATOCRIT 35.8 % (36.0-47.0); HEMOGLOBIN 11.6 g/dl (12.0-15.5); IMMATURE GRANULOCYTE % 0.9 % (0-3.0); LYMPH # 1.3 10^3/uL (1.5-4.5); LYMPH % 16.3 % (24.0-44.0); MEAN CORPUSCULAR HEMOGLOBIN 29.1 pg (27.0-33.0); MEAN CORPUSCULAR HGB CONC 32.4 g/dl (32.0-36.5); MEAN CORPUSCULAR VOLUME 89.7 fl (80.0-96.0); MONO # 0.5 10^3/uL (0.0-0.8); MONO % 6.1 % (0.0-5.0); NEUTROPHILS # 5.6 10^3/uL (1.8-7.7); NEUTROPHILS % 72.9 % (36.0-66.0); PLATELET COUNT, AUTOMATED 263 10^3/uL (150-450); RED BLOOD COUNT 3.99 10^6/uL (4.00-5.40); RED CELL DISTRIBUTION WIDTH 14.3 % (11.5-14.5); WHITE BLOOD COUNT 7.7 10^3/uL (4.0-10.0)
[2018-05-01 09:55] LABS: ALT/SGPT 23 U/L (12-78); CHOLESTEROL LEVEL 298 MG/DL (<200); CHOLESTEROL RISK RATIO 8.277 (<5); DIGOXIN LEVEL 0.1 NG/ML (0.5-2.0); HDL CHOLESTEROL 36 MG/DL (>40); NON-HDL-C 262 MG/DL; TRIGLYCERIDES LEVEL 698 MG/DL (<150)
[2018-05-01 11:06] LABS: ESTIMATED AVERAGE GLUCOSE 278 MG/DL (60-110); HEMOGLOBIN A1c 11.3 %
== END ==
LOC: SKLAB4 09:46
DX: I48.91 Unspecified atrial fibrillation (principal); E11.9 Type 2 diabetes mellitus without complications; N18.9 Chronic kidney disease, unspecified
CPT/HCPCS: 84460

== ENCOUNTER → 2018-06-05 | Outpatient (REF) | payer MEDICARE, MEDICAID ==
[2018-06-05 09:18] LABS: ANION GAP 10 MEQ/L (8-16); BLOOD UREA NITROGEN 34 MG/DL (7-18); CARBON DIOXIDE LEVEL 28 MEQ/L (21-32); CHLORIDE LEVEL 100 MEQ/L (98-107); CREATININE FOR GFR 1.21 MG/DL (0.55-1.30); GLOMERULAR FILTRATION RATE 46.4 (>39); GLUCOSE, FASTING 395 MG/DL (70-100); POTASSIUM SERUM 5.1 MEQ/L (3.5-5.1); SODIUM LEVEL 138 MEQ/L (136-145)
[2018-06-05 09:53] LABS: TOTAL 25(OH) VITAMIN D 41.6 NG/ML (30.0-100.0)
== END ==
LOC: SKLAB4 09:49
DX: F03.90 Unspecified dementia, unspecified severity, without behavioral disturbance, psychotic disturbance, mood disturbance, and anxiety (principal); N19 Unspecified kidney failure; E55.9 Vitamin D deficiency, unspecified
CPT/HCPCS: 36415

== ENCOUNTER → 2018-06-12 | Outpatient (REF) | payer MEDICARE, MEDICAID ==
[2018-06-12 23:03] LABS: BEDSIDE GLUCOSE CONFIRMATION 474 MG/DL (LESS THAN 200)
== END ==
LOC: SKLAB4 22:04
DX: R73.01 Impaired fasting glucose (principal)
CPT/HCPCS: 82947

== ENCOUNTER → 2018-06-13 | Outpatient (REF) | payer MEDICARE, MEDICAID ==
[2018-06-13 12:47] LABS: APPEARANCE, URINE CLOUDY (CLEAR); BACTERIA, URINE AUTO 1+ (NEGATIVE); BILIRUBIN, URINE AUTO NEGATIVE (NEGATIVE); BLOOD, URINE BLOOD NEGATIVE (NEGATIVE); COLOR, URINE YELLOW (YELLOW); GLUCOSE, URINE (UA) AUTO 3+ mg/dL (NEGATIVE); KETONE, URINE AUTO NEGATIVE (NEGATIVE); LEUKOCYTE ESTERASE, URINE AUTO 3+ (NEGATIVE); NITRITE, URINE AUTO NEGATIVE (NEGATIVE); PROTEIN, URINE AUTO 1+ mg/dL (NEGATIVE); RBC, URINE AUTO 6 /HPF (0-3); SPECIFIC GRAVITY URINE AUTO 1.007 (1.002-1.035); SQUAMOUS EPITHELIAL CELL UR AU 1 /HPF (0-6); UROBILINOGEN, URINE AUTO 0.2 mg/dL (0.0-2.0); WBC, URINE AUTO TNTC /HPF (0-3)
[2018-06-13 18:22] LABS: BEDSIDE GLUCOSE CONFIRMATION 499 MG/DL (LESS THAN 200)
== END ==
LOC: SKLAB4 11:59
DX: N39.0 Urinary tract infection, site not specified (principal); E11.40 Type 2 diabetes mellitus with diabetic neuropathy, unspecified
CPT/HCPCS: 82947

== ENCOUNTER → 2018-06-14 | Outpatient (REF) | payer MEDICARE, MEDICAID | LOC: SKLAB4 17:16 | DX: R73.01 Impaired fasting glucose (principal) ==

== ENCOUNTER → 2018-06-14 | Outpatient (REF) | payer MEDICARE, MEDICAID ==
[2018-06-14 10:14] LABS: HEMATOCRIT 33.4 % (36.0-47.0); HEMOGLOBIN 10.6 g/dl (12.0-15.5); MEAN CORPUSCULAR HGB CONC 31.7 g/dl (32.0-36.5); MEAN CORPUSCULAR VOLUME 91.3 fl (80.0-96.0); PLATELET COUNT, AUTOMATED 280 10^3/uL (150-450); RED BLOOD COUNT 3.66 10^6/uL (4.00-5.40); RED CELL DISTRIBUTION WIDTH 13.5 % (11.5-14.5); WHITE BLOOD COUNT 7.9 10^3/uL (4.0-10.0)
[2018-06-14 10:28] LABS: ANION GAP 12 MEQ/L (8-16); BLOOD UREA NITROGEN 50 MG/DL (7-18); CALCIUM LEVEL 8.4 MG/DL (8.8-10.2); CARBON DIOXIDE LEVEL 29 MEQ/L (21-32); CHLORIDE LEVEL 94 MEQ/L (98-107); CREATININE FOR GFR 1.62 MG/DL (0.55-1.30); GLOMERULAR FILTRATION RATE 33.2 (>39); SODIUM LEVEL 135 MEQ/L (136-145)
[2018-06-14 10:31] LABS: GLUCOSE, FASTING 473 MG/DL (70-100); POTASSIUM SERUM 5.9 MEQ/L (3.5-5.1)
[2018-06-14 15:03] LABS: BEDSIDE GLUCOSE CONFIRMATION 586 MG/DL (LESS THAN 200)
[2018-06-14 18:15] LABS: BEDSIDE GLUCOSE CONFIRMATION 581 MG/DL (LESS THAN 200)
== END ==
LOC: SKLAB4 07:18
DX: R73.01 Impaired fasting glucose (principal)
CPT/HCPCS: 36415

== ENCOUNTER → 2018-06-15 | Outpatient (REF) | payer MEDICARE, MEDICAID ==
[2018-06-15 08:25] LABS: ANION GAP 8 MEQ/L (8-16); BLOOD UREA NITROGEN 39 MG/DL (7-18); CALCIUM LEVEL 8.8 MG/DL (8.8-10.2); CARBON DIOXIDE LEVEL 32 MEQ/L (21-32); CHLORIDE LEVEL 98 MEQ/L (98-107); CREATININE FOR GFR 1.18 MG/DL (0.55-1.30); GLOMERULAR FILTRATION RATE 47.8 (>39); GLUCOSE, FASTING 228 MG/DL (70-100); POTASSIUM SERUM 4.3 MEQ/L (3.5-5.1); SODIUM LEVEL 138 MEQ/L (136-145)
== END ==
LOC: SKLAB4 08:00
DX: E87.6 Hypokalemia (principal)
CPT/HCPCS: 36415

== ENCOUNTER → 2018-06-21 | Outpatient (REF) | payer MEDICARE, MEDICAID ==
[2018-06-21 19:24] LABS: BEDSIDE GLUCOSE CONFIRMATION 559 MG/DL (LESS THAN 200)
== END ==
LOC: SKLAB4 17:25
DX: R73.9 Hyperglycemia, unspecified (principal)
CPT/HCPCS: 82947

== ENCOUNTER 2018-06-23 11:06 | Outpatient (REF) | payer MEDICARE, MEDICAID ==
[2018-07-03 09:32] LABS: ANION GAP 9 MEQ/L (8-16); BLOOD UREA NITROGEN 39 MG/DL (7-18); CALCIUM LEVEL 8.7 MG/DL (8.8-10.2); CARBON DIOXIDE LEVEL 30 MEQ/L (21-32); CHLORIDE LEVEL 103 MEQ/L (98-107); CREATININE FOR GFR 1.42 MG/DL (0.55-1.30); GLOMERULAR FILTRATION RATE 38.6 (>39); GLUCOSE, FASTING 199 MG/DL (70-100); SODIUM LEVEL 142 MEQ/L (136-145)
[2018-07-03 09:34] LABS: POTASSIUM SERUM 5.4 MEQ/L (3.5-5.1)
== END 2018-07-03 ==
LOC: SKLAB4 11:06
DX: N18.9 Chronic kidney disease, unspecified (principal)
CPT/HCPCS: 36415

== ENCOUNTER → 2018-06-26 | Outpatient (REF) | payer MEDICARE, MEDICAID ==
[2018-06-26 19:38] LABS: BEDSIDE GLUCOSE CONFIRMATION 523 MG/DL (LESS THAN 200)
== END ==
LOC: SKLAB4 16:45
DX: R73.9 Hyperglycemia, unspecified (principal)
CPT/HCPCS: 82947

== ENCOUNTER → 2018-07-04 | Outpatient (REF) | payer MEDICARE, MEDICAID ==
[2018-07-04 12:25] LABS: ANION GAP 9 MEQ/L (8-16); BLOOD UREA NITROGEN 37 MG/DL (7-18); CALCIUM LEVEL 8.8 MG/DL (8.8-10.2); CARBON DIOXIDE LEVEL 29 MEQ/L (21-32); CHLORIDE LEVEL 104 MEQ/L (98-107); CREATININE FOR GFR 1.23 MG/DL (0.55-1.30); GLOMERULAR FILTRATION RATE 45.6 (>39); GLUCOSE, FASTING 134 MG/DL (70-100); POTASSIUM SERUM 5.1 MEQ/L (3.5-5.1); SODIUM LEVEL 142 MEQ/L (136-145)
== END ==
LOC: SKLAB4 09:43
DX: E87.6 Hypokalemia (principal)
CPT/HCPCS: 80048

== ENCOUNTER → 2018-07-11 | Outpatient (REF) | payer MEDICARE, MEDICAID ==
[2018-07-11 19:29] LABS: BEDSIDE GLUCOSE CONFIRMATION 454 MG/DL (LESS THAN 200)
== END ==
LOC: SKLAB4 17:35
DX: R73.09 Other abnormal glucose (principal)
CPT/HCPCS: 82947

== ENCOUNTER → 2018-07-16 | Outpatient (REF) | payer MEDICARE, MEDICAID ==
[2018-07-16 17:14] LABS: BASO % 0.3 % (0.0-1.0); EOS # 0.2 10^3/uL (0.0-0.50); EOS % 2.2 % (0.0-3.0); HEMATOCRIT 36.8 % (36.0-47.0); HEMOGLOBIN 11.8 g/dl (12.0-15.5); IMMATURE GRANULOCYTE % 0.8 % (0-3.0); LYMPH % 12.6 % (24.0-44.0); MEAN CORPUSCULAR HEMOGLOBIN 28.9 pg (27.0-33.0); MEAN CORPUSCULAR HGB CONC 32.1 g/dl (32.0-36.5); MEAN CORPUSCULAR VOLUME 90.2 fl (80.0-96.0); MONO # 0.6 10^3/uL (0.0-0.8); NEUTROPHILS % 76.1 % (36.0-66.0); PLATELET COUNT, AUTOMATED 327 10^3/uL (150-450); RED BLOOD COUNT 4.08 10^6/uL (4.00-5.40); WHITE BLOOD COUNT 7.9 10^3/uL (4.0-10.0)
[2018-07-16 17:28] LABS: ANION GAP 9 MEQ/L (8-16); BLOOD UREA NITROGEN 41 MG/DL (7-18); CALCIUM LEVEL 8.5 MG/DL (8.8-10.2); CARBON DIOXIDE LEVEL 27 MEQ/L (21-32); CHLORIDE LEVEL 100 MEQ/L (98-107); CREATININE FOR GFR 1.51 MG/DL (0.55-1.30); GLUCOSE, FASTING 217 MG/DL (70-100); POTASSIUM SERUM 4.4 MEQ/L (3.5-5.1); SODIUM LEVEL 136 MEQ/L (136-145)
== END ==
LOC: M LAB 15:43
DX: R50.9 Fever, unspecified (principal); R53.83 Other fatigue
CPT/HCPCS: 80048

== ENCOUNTER → 2018-07-18 | Outpatient (REF) | payer MEDICARE, MEDICAID ==
[2018-07-18 08:38] LABS: ANION GAP 10 MEQ/L (8-16); BLOOD UREA NITROGEN 30 MG/DL (7-18); CARBON DIOXIDE LEVEL 23 MEQ/L (21-32); CHLORIDE LEVEL 107 MEQ/L (98-107); CREATININE FOR GFR 1.07 MG/DL (0.55-1.30); GLOMERULAR FILTRATION RATE 53.5 (>39); GLUCOSE, FASTING 87 MG/DL (70-100); POTASSIUM SERUM 4.2 MEQ/L (3.5-5.1); SODIUM LEVEL 140 MEQ/L (136-145)
== END ==
LOC: SKLAB4 07:01
DX: R79.89 Other specified abnormal findings of blood chemistry (principal)
CPT/HCPCS: 36415

== ENCOUNTER → 2018-07-31 | Outpatient (REF) | payer MEDICARE, MEDICAID ==
[2018-07-31 10:23] LABS: BASO # 0.1 10^3/uL (0.0-0.2); BASO % 0.6 % (0.0-1.0); EOS # 0.2 10^3/uL (0.0-0.50); EOS % 2.7 % (0.0-3.0); HEMATOCRIT 35.4 % (36.0-47.0); HEMOGLOBIN 11.2 g/dl (12.0-15.5); IMMATURE GRANULOCYTE % 0.3 % (0-3.0); LYMPH # 1.5 10^3/uL (1.5-4.5); LYMPH % 17.2 % (24.0-44.0); MEAN CORPUSCULAR HEMOGLOBIN 28.6 pg (27.0-33.0); MEAN CORPUSCULAR HGB CONC 31.6 g/dl (32.0-36.5); MEAN CORPUSCULAR VOLUME 90.3 fl (80.0-96.0); MONO # 0.5 10^3/uL (0.0-0.8); MONO % 5.9 % (0.0-5.0); NEUTROPHILS # 6.4 10^3/uL (1.8-7.7); NEUTROPHILS % 73.3 % (36.0-66.0); PLATELET COUNT, AUTOMATED 286 10^3/uL (150-450); RED BLOOD COUNT 3.92 10^6/uL (4.00-5.40); RED CELL DISTRIBUTION WIDTH 13.9 % (11.5-14.5); WHITE BLOOD COUNT 8.8 10^3/uL (4.0-10.0)
[2018-07-31 10:44] LABS: ALT/SGPT 19 U/L (12-78); ANION GAP 9 MEQ/L (8-16); BLOOD UREA NITROGEN 32 MG/DL (7-18); CALCIUM LEVEL 8.9 MG/DL (8.8-10.2); CARBON DIOXIDE LEVEL 32 MEQ/L (21-32); CHLORIDE LEVEL 101 MEQ/L (98-107); CREATININE FOR GFR 1.14 MG/DL (0.55-1.30); GLOMERULAR FILTRATION RATE 49.7 (>39); GLUCOSE, FASTING 242 MG/DL (70-100); POTASSIUM SERUM 4.8 MEQ/L (3.5-5.1); SODIUM LEVEL 142 MEQ/L (136-145)
[2018-07-31 10:57] LABS: ESTIMATED AVERAGE GLUCOSE 252 MG/DL (60-110); HEMOGLOBIN A1c 10.4 %
== END ==
LOC: SKLAB4 10:04
DX: N18.9 Chronic kidney disease, unspecified (principal); E11.9 Type 2 diabetes mellitus without complications
CPT/HCPCS: 84460

== ENCOUNTER → 2018-08-28 | Outpatient (REF) | payer MEDICARE, MEDICAID ==
[2018-08-28 08:47] LABS: ANION GAP 10 MEQ/L (8-16); BLOOD UREA NITROGEN 23 MG/DL (7-18); CALCIUM LEVEL 8.8 MG/DL (8.8-10.2); CARBON DIOXIDE LEVEL 28 MEQ/L (21-32); CHLORIDE LEVEL 104 MEQ/L (98-107); CREATININE FOR GFR 1.08 MG/DL (0.55-1.30); GLOMERULAR FILTRATION RATE 52.9 (>39); GLUCOSE, FASTING 191 MG/DL (70-100); POTASSIUM SERUM 4.3 MEQ/L (3.5-5.1); SODIUM LEVEL 142 MEQ/L (136-145)
== END ==
LOC: SKLAB4 10:22
DX: N18.9 Chronic kidney disease, unspecified (principal); F03.90 Unspecified dementia, unspecified severity, without behavioral disturbance, psychotic disturbance, mood disturbance, and anxiety
CPT/HCPCS: 80048

== ENCOUNTER → 2018-09-26 | Outpatient (CLI) | payer MEDICARE, MEDICAID | LOC: SKLAB4 23:48 | DX: M85.871 Other specified disorders of bone density and structure, right ankle and foot (principal); M17.11 Unilateral primary osteoarthritis, right knee; M25.761 Osteophyte, right knee; S22.31XA Fracture of one rib, right side, initial encounter for closed fracture; W19.XXXA Unspecified fall, initial encounter; S43.004S Unspecified dislocation of right shoulder joint, sequela; M89.8X8 Other specified disorders of bone, other site; M16.11 Unilateral primary osteoarthritis, right hip; M25.511 Pain in right shoulder; M25.521 Pain in right elbow; M25.561 Pain in right knee; R10.2 Pelvic and perineal pain; Z98.1 Arthrodesis status | CPT/HCPCS: 72190 ==

== ENCOUNTER → 2018-10-02 | Outpatient (REF) | payer MEDICARE, MEDICAID ==
[2018-10-02 08:44] LABS: ANION GAP 7 MEQ/L (8-16); BLOOD UREA NITROGEN 34 MG/DL (7-18); CALCIUM LEVEL 8.4 MG/DL (8.8-10.2); CARBON DIOXIDE LEVEL 28 MEQ/L (21-32); CHLORIDE LEVEL 106 MEQ/L (98-107); CREATININE FOR GFR 1.11 MG/DL (0.55-1.30); GLOMERULAR FILTRATION RATE 51.3 (>39); GLUCOSE, FASTING 52 MG/DL (70-100); POTASSIUM SERUM 4.2 MEQ/L (3.5-5.1); SODIUM LEVEL 141 MEQ/L (136-145)
== END ==
LOC: SKLAB4 09:40
DX: N18.9 Chronic kidney disease, unspecified (principal)
CPT/HCPCS: 80048

== ENCOUNTER → 2018-10-30 | Outpatient (REF) | payer MEDICARE, MEDICAID ==
[2018-10-30 09:02] LABS: BASO % 0.4 % (0.0-1.0); EOS # 0.5 10^3/uL (0.0-0.50); EOS % 7.2 % (0.0-3.0); HEMATOCRIT 37.2 % (36.0-47.0); HEMOGLOBIN 11.3 g/dl (12.0-15.5); IMMATURE GRANULOCYTE % 0.4 % (0-3.0); LYMPH # 1.3 10^3/uL (1.5-4.5); LYMPH % 18.9 % (24.0-44.0); MEAN CORPUSCULAR HEMOGLOBIN 26.5 pg (27.0-33.0); MEAN CORPUSCULAR HGB CONC 30.4 g/dl (32.0-36.5); MEAN CORPUSCULAR VOLUME 87.3 fl (80.0-96.0); MONO # 0.6 10^3/uL (0.0-0.8); MONO % 8.5 % (0.0-5.0); NEUTROPHILS # 4.6 10^3/uL (1.8-7.7); NEUTROPHILS % 64.6 % (36.0-66.0); PLATELET COUNT, AUTOMATED 282 10^3/uL (150-450); RED BLOOD COUNT 4.26 10^6/uL (4.00-5.40); RED CELL DISTRIBUTION WIDTH 14.7 % (11.5-14.5); WHITE BLOOD COUNT 7.1 10^3/uL (4.0-10.0)
[2018-10-30 09:37] LABS: ALT/SGPT 17 U/L (12-78); ANION GAP 9 MEQ/L (8-16); BLOOD UREA NITROGEN 23 MG/DL (7-18); CALCIUM LEVEL 8.8 MG/DL (8.8-10.2); CARBON DIOXIDE LEVEL 27 MEQ/L (21-32); CHLORIDE LEVEL 104 MEQ/L (98-107); CHOLESTEROL LEVEL 200 MG/DL (<200); CHOLESTEROL RISK RATIO 6.451 (<5); GLOMERULAR FILTRATION RATE 39.2 (>39); GLUCOSE, FASTING 243 MG/DL (70-100); HDL CHOLESTEROL 31 MG/DL (>40); LDL CHOLESTEROL 105 MG/DL (<100); NON-HDL-C 169 MG/DL; POTASSIUM SERUM 5.1 MEQ/L (3.5-5.1); SODIUM LEVEL 140 MEQ/L (136-145); TRIGLYCERIDES LEVEL 319 MG/DL (<150)
== END ==
LOC: SKLAB4 11:24
DX: N18.9 Chronic kidney disease, unspecified (principal); E11.9 Type 2 diabetes mellitus without complications; E78.5 Hyperlipidemia, unspecified
CPT/HCPCS: 84460

== ENCOUNTER → 2018-11-02 | Outpatient (REF) | payer MEDICARE, MEDICAID ==
[~2018-11-02] MED LIST changes: -ALEN35TA PO; +ALEN35TA37 PO; -AMLO10TA2 PO; +AMLO10TA4 PO; +AMLO5TAB4 PO; +BENG2.5G TOP; -BENGEL TOP; -DRIS50002 PO; +DRIS50003 PO; -FOLI1TAB4 PO; +FOLI1TAB5 PO; +GABA-1171 PO; -GABA-279 PO; -GLUC4CHW PO; +GLUC4CHW19 PO; -LEVA1TAB PO; +LEVA250T13 PO; -LOSA50TA20 PO; +LOSA50TA73 PO; +MILK12002 PO; -MILKSUS PO; +SPIR-10 PO; -SPIR25TA2 PO
== END ==
LOC: SKLAB4 21:19
PROVIDERS: ATTEND Internal Medicine
DX: R19.5 Other fecal abnormalities (principal)

== ENCOUNTER → 2018-11-15 | Outpatient (REF) | payer MEDICARE, MEDICAID | LOC: SKLAB4 07:53 | PROVIDERS: ATTEND Internal Medicine | DX: I48.91 Unspecified atrial fibrillation (principal) ==

== ENCOUNTER → 2018-11-21 | Outpatient (REF) | payer MEDICARE, MEDICAID ==
[~2018-11-21] MED LIST changes: -AMLO10TA4 PO; +AMLO10TA5 PO; -AMLO5TAB4 PO; +AMLO5TAB6 PO; -ENEMENE16 PR; +ENEMENE4 PR; +FOLI1TAB11 PO; -FOLI1TAB5 PO; +LASI20TA3 PO; -LOSA50TA73 PO; +LOSA50TA88 PO; +MILK120011 PO; -MILK12002 PO; -PROM25TA PO; +PROM25TA12 PO
== END ==
LOC: SKLAB4 10:14
PROVIDERS: ATTEND Internal Medicine
DX: I48.91 Unspecified atrial fibrillation (principal)

== ENCOUNTER → 2018-12-04 | Outpatient (REF) | payer MEDICARE, MEDICAID ==
[2018-12-04 07:48] LABS: HEMATOCRIT 38.5 % (36.0-47.0); HEMOGLOBIN 11.9 g/dl (12.0-15.5); MEAN CORPUSCULAR HEMOGLOBIN 26.7 pg (27.0-33.0); MEAN CORPUSCULAR HGB CONC 30.9 g/dl (32.0-36.5); MEAN CORPUSCULAR VOLUME 86.5 fl (80.0-96.0); PLATELET COUNT, AUTOMATED 250 10^3/uL (150-450); RED BLOOD COUNT 4.45 10^6/uL (4.00-5.40); WHITE BLOOD COUNT 7.4 10^3/uL (4.0-10.0)
== END ==
LOC: SKLAB4 10:00
PROVIDERS: ATTEND Internal Medicine
DX: N18.9 Chronic kidney disease, unspecified (principal); D64.9 Anemia, unspecified; E55.9 Vitamin D deficiency, unspecified; Z79.899 Other long term (current) drug therapy

== ENCOUNTER → 2019-01-26 | Outpatient (REF) | payer MEDICARE, MEDICAID ==
[2019-01-26 08:08] LABS: HEMOGLOBIN A1c 8.7 %
== END ==
LOC: SKLAB4 08:00
PROVIDERS: ATTEND Internal Medicine
DX: E11.9 Type 2 diabetes mellitus without complications (principal); Z79.899 Other long term (current) drug therapy

== ENCOUNTER → 2019-01-29 | Outpatient (REF) | payer MEDICARE, MEDICAID ==
[2019-01-29 08:23] LABS: HEMATOCRIT 42.4 % (36.0-47.0); HEMOGLOBIN 12.9 g/dl (12.0-15.5); MEAN CORPUSCULAR HEMOGLOBIN 27.4 pg (27.0-33.0); MEAN CORPUSCULAR HGB CONC 30.4 g/dl (32.0-36.5); MEAN CORPUSCULAR VOLUME 90.2 fl (80.0-96.0); PLATELET COUNT, AUTOMATED 243 10^3/uL (150-450); WHITE BLOOD COUNT 8.1 10^3/uL (4.0-10.0)
[2019-01-29 08:42] LABS: CALCIUM LEVEL 9.1 MG/DL (8.8-10.2); CREATININE FOR GFR 1.12 MG/DL (0.55-1.30); GLOMERULAR FILTRATION RATE 50.6 (>39); POTASSIUM SERUM 4.7 MEQ/L (3.5-5.1)
[2019-01-29 11:45] LABS: HEMOGLOBIN A1c 8.6 %
== END ==
LOC: SKLAB4 12:30
PROVIDERS: ATTEND Internal Medicine
DX: D64.9 Anemia, unspecified (principal); E11.9 Type 2 diabetes mellitus without complications

== ENCOUNTER → 2019-02-26 | Outpatient (REF) | payer MEDICARE, MEDICAID ==
[~2019-02-26] MED LIST changes: -/ACETCOD2T PO; -/METO25TAB PO; -/WARF5TA PO; +ACET1TAB15 PO; -ACET50TA PO; +COUM1TAB17 PO; -FERG1TAB PO; +FERG27TA PO; +HYDR-3715 PO; +LATA0.0013 OU; -LATA5OPD OU; +MAPA500T17 PO; +METO-743; +METO1TAB87 PO; -NORCOTAB PO; +SENN1TAB41 PO; -SENN8.6T7 PO; +SERT-141 PO; -SERT50TA PO; -TOPR50TA
== END ==
LOC: SKLAB4 10:42
PROVIDERS: ATTEND Internal Medicine
DX: E55.9 Vitamin D deficiency, unspecified (principal); Z79.899 Other long term (current) drug therapy

== ENCOUNTER → 2019-04-30 | Outpatient (REF) | payer MEDICARE, MEDICAID ==
[2019-04-30 08:12] LABS: HEMATOCRIT 45.3 % (36.0-47.0); HEMOGLOBIN 14.3 g/dl (12.0-15.5); MEAN CORPUSCULAR HEMOGLOBIN 28.9 pg (27.0-33.0); MEAN CORPUSCULAR HGB CONC 31.6 g/dl (32.0-36.5); MEAN CORPUSCULAR VOLUME 91.5 fl (80.0-96.0); PLATELET COUNT, AUTOMATED 299 10^3/uL (150-450); RED BLOOD COUNT 4.95 10^6/uL (4.00-5.40); WHITE BLOOD COUNT 9.7 10^3/uL (4.0-10.0)
[2019-04-30 08:26] LABS: CALCIUM LEVEL 9.8 MG/DL (8.8-10.2); CREATININE FOR GFR 1.13 MG/DL (0.55-1.30); GLOMERULAR FILTRATION RATE 50.1 (>39); HEMOGLOBIN A1c 10.8 %; POTASSIUM SERUM 4.8 MEQ/L (3.5-5.1)
== END ==
LOC: SKLAB4 08:45
PROVIDERS: ATTEND Internal Medicine
DX: E11.9 Type 2 diabetes mellitus without complications (principal); N18.9 Chronic kidney disease, unspecified

== ENCOUNTER → 2019-07-30 | Outpatient (REF) | payer MEDICARE, MEDICAID ==
[~2019-07-30] MED LIST changes: -ARTI99.0 OU; +ARTIDRO2 OU; +CYAN100049 PO; -DULO1CAP PO; +DULO1CAP4 PO; -MELA5TAB17 PO; +MELA5TAB31 PO; -METF750T PO; +METF750T36 PO; -OMEP20CA3 PO; +OMEP20CA4 PO; -VITA10002 PO; +ZETI10TA16 PO; -ZETI10TA30 PO
[2019-07-30 08:44] LABS: HEMATOCRIT 41.5 % (36.0-47.0); MEAN CORPUSCULAR HEMOGLOBIN 29.8 pg (27.0-33.0); MEAN CORPUSCULAR HGB CONC 31.3 g/dl (32.0-36.5); MEAN CORPUSCULAR VOLUME 95.2 fl (80.0-96.0); PLATELET COUNT, AUTOMATED 267 10^3/uL (150-450); RED BLOOD COUNT 4.36 10^6/uL (4.00-5.40); WHITE BLOOD COUNT 7.9 10^3/uL (4.0-10.0)
[2019-07-30 09:03] LABS: HEMOGLOBIN A1c 8.9 %
[2019-07-30 09:13] LABS: CALCIUM LEVEL 9.6 MG/DL (8.8-10.2); CREATININE FOR GFR 1.32 MG/DL (0.55-1.30); GLOMERULAR FILTRATION RATE 41.9 (>39); POTASSIUM SERUM 4.6 MEQ/L (3.5-5.1)
== END ==
LOC: SKLAB4 10:01
PROVIDERS: ATTEND Internal Medicine
DX: N18.9 Chronic kidney disease, unspecified (principal); E11.9 Type 2 diabetes mellitus without complications

== ENCOUNTER → 2019-09-03 | Outpatient (REF) | payer MEDICARE, MEDICAID ==
[~2019-09-03] MED LIST changes: -ALEN35TA37 PO; +ALEN35TA6 PO
== END ==
LOC: SKLAB4 11:18
PROVIDERS: ATTEND Internal Medicine
DX: E55.9 Vitamin D deficiency, unspecified (principal); Z79.899 Other long term (current) drug therapy

== ENCOUNTER → 2019-10-29 | Outpatient (REF) | payer MEDICARE, MEDICAID ==
[~2019-10-29] MED LIST changes: +OMEP-172 PO; -OMEP20CA4 PO
[2019-10-29 09:20] LABS: HEMATOCRIT 42.5 % (36.0-47.0); HEMOGLOBIN 13.5 g/dl (12.0-15.5); MEAN CORPUSCULAR HEMOGLOBIN 29.3 pg (27.0-33.0); MEAN CORPUSCULAR HGB CONC 31.8 g/dl (32.0-36.5); MEAN CORPUSCULAR VOLUME 92.4 fl (80.0-96.0); PLATELET COUNT, AUTOMATED 252 10^3/uL (150-450); WHITE BLOOD COUNT 9.8 10^3/uL (4.0-10.0)
[2019-10-29 09:39] LABS: BLOOD UREA NITROGEN 37 MG/DL (7-18); CALCIUM LEVEL 9.6 MG/DL (8.8-10.2); CARBON DIOXIDE LEVEL 31 MEQ/L (21-32); CHLORIDE LEVEL 103 MEQ/L (98-107); CHOLESTEROL LEVEL 244 MG/DL (<200); CHOLESTEROL RISK RATIO 7.176 (<5); CREATININE FOR GFR 1.37 MG/DL (0.55-1.30); DIGOXIN LEVEL 1.6 NG/ML (0.5-2.0); GLOMERULAR FILTRATION RATE 40.1 (>39); GLUCOSE, FASTING 136 MG/DL (70-100); HDL CHOLESTEROL 34 MG/DL (>40); MAGNESIUM LEVEL 2.3 MG/DL (1.8-2.4); NON-HDL-C 210 MG/DL; POTASSIUM SERUM 4.9 MEQ/L (3.5-5.1); SODIUM LEVEL 141 MEQ/L (136-145); TRIGLYCERIDES LEVEL 685 MG/DL (<150)
[2019-10-29 11:14] LABS: HEMOGLOBIN A1c 7.6 %
== END ==
LOC: SKLAB4 10:18
PROVIDERS: ATTEND Internal Medicine
DX: N18.9 Chronic kidney disease, unspecified (principal); E03.9 Hypothyroidism, unspecified; E11.9 Type 2 diabetes mellitus without complications

== ENCOUNTER → 2019-11-11 | Outpatient (REF) | payer MEDICARE, MEDICAID ==
[2019-11-11 23:00] LABS: APPEARANCE, URINE CLOUDY (CLEAR); BACTERIA, URINE AUTO 1+ (NEGATIVE); BILIRUBIN, URINE AUTO NEGATIVE (NEGATIVE); BLOOD, URINE BLOOD 1+ (NEGATIVE); COLOR, URINE YELLOW (YELLOW); GLUCOSE, URINE (UA) AUTO 1+ mg/dL (NEGATIVE); KETONE, URINE AUTO NEGATIVE (NEGATIVE); LEUKOCYTE ESTERASE, URINE AUTO 3+ (NEGATIVE); NITRITE, URINE AUTO NEGATIVE (NEGATIVE); PROTEIN, URINE AUTO 2+ mg/dL (NEGATIVE); RBC, URINE AUTO 20 /HPF (0-3); SPECIFIC GRAVITY URINE AUTO 1.015 (1.002-1.035); SQUAMOUS EPITHELIAL CELL UR AU 1 /HPF (0-6); UROBILINOGEN, URINE AUTO 0.2 mg/dL (0.0-2.0); WBC, URINE AUTO TNTC /HPF (0-3)
== END ==
LOC: SKLAB4 20:58
PROVIDERS: ATTEND Internal Medicine
DX: R35.0 Frequency of micturition (principal); R30.9 Painful micturition, unspecified

== ENCOUNTER → 2019-11-12 | Outpatient (REF) | payer MEDICARE, MEDICAID ==
[2019-11-12 08:06] LABS: BASO # 0.1 10^3/uL (0.0-0.2); BASO % 0.6 % (0.0-1.0); EOS # 0.3 10^3/uL (0.0-0.5); EOS % 3.8 % (0.0-3.0); HEMATOCRIT 36.8 % (36.0-47.0); HEMOGLOBIN 11.6 g/dl (12.0-15.5); LYMPH # 2.2 10^3/uL (1.5-5.0); LYMPH % 24.8 % (24.0-44.0); MEAN CORPUSCULAR HGB CONC 31.5 g/dl (32.0-36.5); MONO # 0.9 10^3/uL (0.0-0.8); NEUTROPHILS # 5.5 10^3/uL (1.5-8.5); NEUTROPHILS % 60.5 % (36.0-66.0); PLATELET COUNT, AUTOMATED 240 10^3/uL (150-450)
== END ==
LOC: SKLAB4 07:31
PROVIDERS: ATTEND Internal Medicine
DX: D64.9 Anemia, unspecified (principal)

== ENCOUNTER → 2019-12-03 | Outpatient (REF) | payer MEDICARE, MEDICAID ==
[~2019-12-03] MED LIST changes: -OMEP-172 PO; +OMEP1CAP73 PO
== END ==
LOC: SKLAB4 12:14
PROVIDERS: ATTEND Internal Medicine
DX: N18.9 Chronic kidney disease, unspecified (principal); Z79.899 Other long term (current) drug therapy

== ENCOUNTER → 2020-02-05 | Outpatient (REF) | payer MEDICARE, MEDICAID ==
[~2020-02-05] MED LIST changes: -ARTIDRO2 OU; +POLYOPD OU
[2020-02-05 07:09] LABS: HEMATOCRIT 41.9 % (36.0-47.0); HEMOGLOBIN 13.2 g/dl (12.0-15.5); MEAN CORPUSCULAR HEMOGLOBIN 29.7 pg (27.0-33.0); MEAN CORPUSCULAR HGB CONC 31.5 g/dl (32.0-36.5); MEAN CORPUSCULAR VOLUME 94.4 fl (80.0-96.0); PLATELET COUNT, AUTOMATED 242 10^3/uL (150-450); RED BLOOD COUNT 4.44 10^6/uL (4.00-5.40)
[2020-02-05 07:34] LABS: HEMOGLOBIN A1c 7.5 %
[2020-02-05 07:35] LABS: CALCIUM LEVEL 10.1 MG/DL (8.8-10.2); CREATININE FOR GFR 1.55 MG/DL (0.55-1.30); GLOMERULAR FILTRATION RATE 34.7 (>39); POTASSIUM SERUM 4.7 MEQ/L (3.5-5.1)
== END ==
LOC: SKLAB4 10:21
PROVIDERS: ATTEND Internal Medicine
DX: N17.9 Acute kidney failure, unspecified (principal); E11.9 Type 2 diabetes mellitus without complications

== ENCOUNTER → 2020-03-04 | Outpatient (REF) | payer MEDICARE, MEDICAID | LOC: SKLAB4 10:23 | PROVIDERS: ATTEND Internal Medicine | DX: N18.9 Chronic kidney disease, unspecified (principal); Z79.899 Other long term (current) drug therapy ==

== ENCOUNTER → 2020-03-15 | Outpatient (REF) | payer MEDICARE, MEDICAID ==
[2020-03-15 03:28] LABS: APPEARANCE, URINE TURBID (CLEAR); BACTERIA, URINE AUTO 3+ (NEGATIVE); BILIRUBIN, URINE AUTO NEGATIVE (NEGATIVE); BLOOD, URINE BLOOD 2+ (NEGATIVE); COLOR, URINE YELLOW (YELLOW); GLUCOSE, URINE (UA) AUTO 1+ mg/dL (NEGATIVE); KETONE, URINE AUTO NEGATIVE (NEGATIVE); LEUKOCYTE ESTERASE, URINE AUTO 2+ (NEGATIVE); NITRITE, URINE AUTO NEGATIVE (NEGATIVE); PROTEIN, URINE AUTO 2+ mg/dL (NEGATIVE); RBC, URINE AUTO 88 /HPF (0-3); SPECIFIC GRAVITY URINE AUTO 1.011 (1.002-1.035); SQUAMOUS EPITHELIAL CELL UR AU 3 /HPF (0-6); TRANSITIONAL EPITHELIAL AUTO 3 /HPF; UROBILINOGEN, URINE AUTO 0.2 mg/dL (0.0-2.0); WBC, URINE AUTO TNTC /HPF (0-3)
== END ==
LOC: SKLAB4 01:20
PROVIDERS: ATTEND Internal Medicine
DX: R30.0 Dysuria (principal)

== ENCOUNTER → 2020-04-16 | Outpatient (REF) | payer MEDICARE, MEDICAID ==
[2020-04-16 11:43] LABS: BASO % 0.3 % (0.0-1.0); EOS # 0.3 10^3/uL (0.0-0.5); EOS % 2.9 % (0.0-3.0); HEMATOCRIT 38.7 % (36.0-47.0); HEMOGLOBIN 12.5 g/dl (12.0-15.5); LYMPH # 1.9 10^3/uL (1.5-5.0); MEAN CORPUSCULAR HEMOGLOBIN 29.5 pg (27.0-33.0); MEAN CORPUSCULAR HGB CONC 32.3 g/dl (32.0-36.5); MEAN CORPUSCULAR VOLUME 91.3 fl (80.0-96.0); MONO # 0.8 10^3/uL (0.0-0.8); NEUTROPHILS # 5.8 10^3/uL (1.5-8.5); NEUTROPHILS % 65.6 % (36.0-66.0); PLATELET COUNT, AUTOMATED 220 10^3/uL (150-450); RED BLOOD COUNT 4.24 10^6/uL (4.00-5.40); WHITE BLOOD COUNT 8.8 10^3/uL (4.0-10.0)
[2020-04-16 12:06] LABS: ALBUMIN 3.3 GM/DL (3.2-5.2); CALCIUM LEVEL 9.4 MG/DL (8.8-10.2); CREATININE FOR GFR 1.32 MG/DL (0.55-1.30); GLOMERULAR FILTRATION RATE 41.8 (>39); MAGNESIUM LEVEL 2.2 MG/DL (1.8-2.4); POTASSIUM SERUM 4.8 MEQ/L (3.5-5.1); URIC ACID 4.8 MG/DL (2.6-6.0)
[2020-04-16 12:15] LABS: PTH INTACT 16.5 PG/ML (18.5-88.0)
== END ==
LOC: SKLAB4 10:42
PROVIDERS: ATTEND Internal Medicine
DX: N18.3 Chronic kidney disease, stage 3 (moderate) (principal); E79.0 Hyperuricemia without signs of inflammatory arthritis and tophaceous disease

== ENCOUNTER → 2020-04-29 | Outpatient (REF) | payer MEDICARE, MEDICAID ==
[2020-04-29 09:06] LABS: HEMATOCRIT 39.4 % (36.0-47.0); HEMOGLOBIN 12.4 g/dl (12.0-15.5); MEAN CORPUSCULAR HEMOGLOBIN 29.1 pg (27.0-33.0); MEAN CORPUSCULAR HGB CONC 31.5 g/dl (32.0-36.5); MEAN CORPUSCULAR VOLUME 92.5 fl (80.0-96.0); PLATELET COUNT, AUTOMATED 218 10^3/uL (150-450); RED BLOOD COUNT 4.26 10^6/uL (4.00-5.40); WHITE BLOOD COUNT 7.1 10^3/uL (4.0-10.0)
[2020-04-29 09:32] LABS: CALCIUM LEVEL 9.3 MG/DL (8.8-10.2); CREATININE FOR GFR 1.39 MG/DL (0.55-1.30); GLOMERULAR FILTRATION RATE 39.3 (>39); POTASSIUM SERUM 4.4 MEQ/L (3.5-5.1)
[2020-04-29 10:00] LABS: HEMOGLOBIN A1c 6.9 %
== END ==
LOC: SKLAB4 06:00
PROVIDERS: ATTEND Internal Medicine
DX: I11.0 Hypertensive heart disease with heart failure (principal); N18.9 Chronic kidney disease, unspecified; E11.9 Type 2 diabetes mellitus without complications

== ENCOUNTER → 2020-06-03 | Outpatient (REF) | payer MEDICARE, MEDICAID | LOC: SKLAB4 12:03 | PROVIDERS: ATTEND Internal Medicine | DX: E55.9 Vitamin D deficiency, unspecified (principal); Z79.899 Other long term (current) drug therapy ==

== ENCOUNTER → 2020-07-29 | Outpatient (REF) | payer MEDICARE, MEDICAID ==
[~2020-07-29] MED LIST changes: +ALEN35TA54 PO; -ALEN35TA6 PO; -AMLO10TA5 PO; +AMLO1TAB24 PO; +AMLO1TAB25 PO; -AMLO5TAB6 PO; -MELA5TAB31 PO; +MELA5TAB36 PO
[2020-07-29 08:13] LABS: MEAN CORPUSCULAR HEMOGLOBIN 31.1 pg (27.0-33.0); MEAN CORPUSCULAR HGB CONC 31.4 g/dl (32.0-36.5); MEAN CORPUSCULAR VOLUME 98.9 fl (80.0-96.0); PLATELET COUNT, AUTOMATED 394 10^3/uL (150-450); WHITE BLOOD COUNT 10.8 10^3/uL (4.0-10.0)
[2020-07-29 08:17] LABS: HEMATOCRIT 18.8 % (36.0-47.0)
[2020-07-29 08:20] LABS: HEMOGLOBIN 5.9 g/dl (12.0-15.5)
[2020-07-29 08:46] LABS: CALCIUM LEVEL 8.1 MG/DL (8.8-10.2); CREATININE FOR GFR 2.78 MG/DL (0.55-1.30); GLOMERULAR FILTRATION RATE 17.7 (>39); POTASSIUM SERUM 4.8 MEQ/L (3.5-5.1)
== END ==
LOC: SKLAB4 11:34
DX: F03.90 Unspecified dementia, unspecified severity, without behavioral disturbance, psychotic disturbance, mood disturbance, and anxiety (principal); E11.9 Type 2 diabetes mellitus without complications

== ENCOUNTER → 2020-07-31 | Outpatient (REF) | payer MEDICARE, MEDICAID ==
[2020-07-31 09:22] LABS: HEMATOCRIT 42.1 % (36.0-47.0); HEMOGLOBIN 13.3 g/dl (12.0-15.5); MEAN CORPUSCULAR HGB CONC 31.6 g/dl (32.0-36.5); MEAN CORPUSCULAR VOLUME 91.7 fl (80.0-96.0); PLATELET COUNT, AUTOMATED 245 10^3/uL (150-450); RED BLOOD COUNT 4.59 10^6/uL (4.00-5.40); WHITE BLOOD COUNT 9.5 10^3/uL (4.0-10.0)
== END ==
LOC: SKLAB4 07:29
DX: D64.9 Anemia, unspecified (principal)

== ENCOUNTER → 2020-08-14 | Outpatient (REF) | payer MEDICARE, MEDICAID ==
[2020-08-14 10:06] LABS: APPEARANCE, URINE CLOUDY (CLEAR); BACTERIA, URINE AUTO 1+ (NEGATIVE); BILIRUBIN, URINE AUTO NEGATIVE (NEGATIVE); BLOOD, URINE BLOOD 3+ (NEGATIVE); COLOR, URINE YELLOW (YELLOW); GLUCOSE, URINE (UA) AUTO 2+ mg/dL (NEGATIVE); KETONE, URINE AUTO NEGATIVE (NEGATIVE); LEUKOCYTE ESTERASE, URINE AUTO 3+ (NEGATIVE); NITRITE, URINE AUTO NEGATIVE (NEGATIVE); PROTEIN, URINE AUTO 2+ mg/dL (NEGATIVE); RBC, URINE AUTO TNTC /HPF (0-3); SPECIFIC GRAVITY URINE AUTO 1.014 (1.002-1.035); SQUAMOUS EPITHELIAL CELL UR AU 1 /HPF (0-6); UROBILINOGEN, URINE AUTO 0.2 mg/dL (0.0-2.0); WBC, URINE AUTO TNTC /HPF (0-3)
== END ==
LOC: SKLAB4 09:37
DX: R35.0 Frequency of micturition (principal); R30.0 Dysuria

== ENCOUNTER → 2020-09-18 | Outpatient (REF) | payer MEDICARE, MEDICAID ==
[2020-09-18 09:33] LABS: CALCIUM LEVEL 9.9 MG/DL (8.8-10.2); CREATININE FOR GFR 1.19 MG/DL (0.55-1.30); GLOMERULAR FILTRATION RATE 47.1 (>39); PHOSPHORUS LEVEL 3.9 MG/DL (2.5-4.9)
[2020-09-18 09:54] LABS: PTH INTACT 21.6 PG/ML (18.5-88.0)
== END ==
LOC: SKLAB4 08:27
DX: E11.9 Type 2 diabetes mellitus without complications (principal)

== ENCOUNTER → 2020-09-25 | Outpatient (REF) | payer MEDICAID, MEDICARE | LOC: SKLAB4 11:22 | DX: Z20.828 Contact with and (suspected) exposure to other viral communicable diseases (principal) ==

== ENCOUNTER → 2020-10-01 | Outpatient (REF) | payer MEDICARE, MEDICAID ==
[~2020-10-01] MED LIST changes: +ISOS1TAB36 PO; -ISOS60TA2 PO; -QUET1TAB7 PO; +QUET25TA3 PO
== END ==
LOC: SKLAB4 09-30 10:56 → EDSTATUS 10-15 08:56
PROVIDERS: ATTEND Internal Medicine
DX: Z20.828 Contact with and (suspected) exposure to other viral communicable diseases (principal)

== ENCOUNTER → 2020-10-08 | Outpatient (REF) | payer MEDICARE, MEDICAID | LOC: SKLAB4 08:00 | PROVIDERS: ATTEND Internal Medicine | DX: Z20.828 Contact with and (suspected) exposure to other viral communicable diseases (principal) ==

== ENCOUNTER → 2020-10-15 | Outpatient (REF) | payer MEDICARE, MEDICAID ==
[2020-10-15 16:58] LABS: INFLUENZA A AMPLIFICATION NEGATIVE (NEGATIVE); INFLUENZA B AMPLIFICATION NEGATIVE (NEGATIVE)
== END ==
LOC: SKLAB4 08:00
PROVIDERS: ATTEND Internal Medicine
DX: Z20.828 Contact with and (suspected) exposure to other viral communicable diseases (principal)
CPT/HCPCS: 87502; U0003

== ENCOUNTER → 2020-10-22 | Outpatient (REF) | payer MEDICARE, MEDICAID ==
[~2020-10-22] MED LIST changes: -ISOS1TAB36 PO; +ISOS60TA2 PO; +QUET1TAB7 PO; -QUET25TA3 PO
== END ==
LOC: SKLAB4 07:43
DX: Z20.828 Contact with and (suspected) exposure to other viral communicable diseases (principal)

== ENCOUNTER → 2020-10-29 | Outpatient (REF) | payer MEDICARE, MEDICAID | LOC: SKLAB4 08:21 | DX: Z20.828 Contact with and (suspected) exposure to other viral communicable diseases (principal) ==

== ENCOUNTER → 2020-11-03 | Outpatient (REF) | payer MEDICARE, MEDICAID | LOC: SKLAB4 07:16 | DX: E11.65 Type 2 diabetes mellitus with hyperglycemia (principal) ==

== ENCOUNTER → 2020-11-04 | Outpatient (REF) | payer MEDICARE, MEDICAID ==
[2020-11-04 08:44] LABS: HEMATOCRIT 42.9 % (36.0-47.0); MEAN CORPUSCULAR HEMOGLOBIN 27.8 pg (27.0-33.0); MEAN CORPUSCULAR HGB CONC 30.3 g/dl (32.0-36.5); MEAN CORPUSCULAR VOLUME 91.9 fl (80.0-96.0); PLATELET COUNT, AUTOMATED 297 10^3/uL (150-450); RED BLOOD COUNT 4.67 10^6/uL (4.00-5.40)
[2020-11-04 09:23] LABS: CHOLESTEROL LEVEL 376 MG/DL (<200); HDL CHOLESTEROL 40 MG/DL (>40); MAGNESIUM LEVEL 3.1 MG/DL (1.8-2.4); NON-HDL-C 336 MG/DL; TRIGLYCERIDES LEVEL 734 MG/DL (<150)
[2020-11-04 09:51] LABS: BLOOD UREA NITROGEN 148 MG/DL (7-18); CALCIUM LEVEL 11.5 MG/DL (8.8-10.2); CARBON DIOXIDE LEVEL 25 MEQ/L (21-32); CHLORIDE LEVEL 110 MEQ/L (98-107); CREATININE FOR GFR 3.55 MG/DL (0.55-1.30); GLOMERULAR FILTRATION RATE 13.3 (>39); SODIUM LEVEL 149 MEQ/L (136-145)
[2020-11-04 13:11] LABS: HEMOGLOBIN A1c 10.3 %
[2020-11-04 14:52] LABS: GLUCOSE, FASTING 645 MG/DL (70-100)
== END ==
LOC: SKLAB4 10:48
DX: I48.91 Unspecified atrial fibrillation (principal); E03.9 Hypothyroidism, unspecified; E11.9 Type 2 diabetes mellitus without complications; E78.5 Hyperlipidemia, unspecified; Z20.828 Contact with and (suspected) exposure to other viral communicable diseases
CPT/HCPCS: 36415; 80048; 80061; 83036; 83735; 84443; 85027; U0002

== ENCOUNTER → 2020-11-05 | Outpatient (REF) | payer MEDICARE, MEDICAID ==
[2020-11-05 11:13] LABS: CALCIUM LEVEL 9.5 MG/DL (8.8-10.2); CREATININE FOR GFR 2.64 MG/DL (0.55-1.30); GLOMERULAR FILTRATION RATE 18.8 (>39); POTASSIUM SERUM 4.1 MEQ/L (3.5-5.1)
--- NOTE | 2020-11-06 19:42 | ECGEPIP ---
[facility] Test Date: 2020-11-05 Pat Name: ADAM ANN Department: Room: - Gender: Female Fashion Journalist: : 1945 Requested By: Estephanie Michelle Order Number: [id number] Reading MD: Charlie Negron Measurements Intervals [place] Rate: 71 P: 64 [place]: 178 QRS: 49 QRSD: 89 T: 99 QT: 387 QTc: 421 Interpretive Statements ELECTRONIC ATRIAL PACEMAKER NONSPECIFIC ST & T-WAVE ABNORMALITY Previous tracing done 02-26-17 was not paced Electronically Signed on 11-06-2020 19:42:00 EST by Charlie Negron
== END ==
LOC: SKLAB4 06:21
DX: Z20.828 Contact with and (suspected) exposure to other viral communicable diseases (principal); R94.31 Abnormal electrocardiogram [ECG] [EKG]
CPT/HCPCS: 36415; 80048; 93005; U0003

== ENCOUNTER → 2020-11-06 | Outpatient (REF) | payer MEDICARE, MEDICAID ==
[2020-11-06 08:11] LABS: BASO # 0.1 10^3/uL (0.0-0.2); BASO % 0.4 % (0.0-1.0); EOS # 0.3 10^3/uL (0.0-0.5); EOS % 2.4 % (0.0-3.0); HEMATOCRIT 32.1 % (36.0-47.0); LYMPH # 2.8 10^3/uL (1.5-5.0); LYMPH % 23.2 % (24.0-44.0); MEAN CORPUSCULAR HGB CONC 30.2 g/dl (32.0-36.5); MEAN CORPUSCULAR VOLUME 95.8 fl (80.0-96.0); MONO # 0.9 10^3/uL (0.0-0.8); MONO % 7.3 % (0.0-5.0); NEUTROPHILS # 7.9 10^3/uL (1.5-8.5); NEUTROPHILS % 65.9 % (36.0-66.0); PLATELET COUNT, AUTOMATED 156 10^3/uL (150-450); RED BLOOD COUNT 3.35 10^6/uL (4.00-5.40)
[2020-11-06 08:18] LABS: HEMOGLOBIN 9.7 g/dl (12.0-15.5)
[2020-11-06 08:39] LABS: CALCIUM LEVEL 8.8 MG/DL (8.8-10.2); CREATININE FOR GFR 1.96 MG/DL (0.55-1.30); GLOMERULAR FILTRATION RATE 26.5 (>39); POTASSIUM SERUM 4.1 MEQ/L (3.5-5.1)
== END ==
LOC: SKLAB4 06:23
DX: D72.829 Elevated white blood cell count, unspecified (principal)

== ENCOUNTER → 2020-11-07 | Outpatient (REF) | payer MEDICARE, MEDICAID ==
[2020-11-07 08:34] LABS: HEMATOCRIT 27.5 % (36.0-47.0); HEMOGLOBIN 8.4 g/dl (12.0-15.5); MEAN CORPUSCULAR HEMOGLOBIN 29.2 pg (27.0-33.0); MEAN CORPUSCULAR HGB CONC 30.5 g/dl (32.0-36.5); MEAN CORPUSCULAR VOLUME 95.5 fl (80.0-96.0); PLATELET COUNT, AUTOMATED 165 10^3/uL (150-450); RED BLOOD COUNT 2.88 10^6/uL (4.00-5.40); WHITE BLOOD COUNT 9.2 10^3/uL (4.0-10.0)
[2020-11-07 08:54] LABS: CALCIUM LEVEL 7.9 MG/DL (8.8-10.2); CREATININE FOR GFR 1.52 MG/DL (0.55-1.30); GLOMERULAR FILTRATION RATE 35.5 (>39); POTASSIUM SERUM 3.3 MEQ/L (3.5-5.1)
== END ==
LOC: SKLAB4 06:22
DX: D72.829 Elevated white blood cell count, unspecified (principal)

== ENCOUNTER → 2020-11-07 | Outpatient (REF) | payer MEDICARE, MEDICAID | LOC: SKLAB4 04:43 | DX: D72.829 Elevated white blood cell count, unspecified (principal) ==

== ENCOUNTER → 2020-11-08 | Outpatient (REF) | payer MEDICARE, MEDICAID ==
[2020-11-08 08:06] LABS: CALCIUM LEVEL 8.1 MG/DL (8.8-10.2); CREATININE FOR GFR 1.31 MG/DL (0.55-1.30); GLOMERULAR FILTRATION RATE 42.1 (>39); POTASSIUM SERUM 3.7 MEQ/L (3.5-5.1)
[2020-11-08 08:25] LABS: HEMATOCRIT 29.3 % (36.0-47.0); HEMOGLOBIN 8.8 g/dl (12.0-15.5); MEAN CORPUSCULAR HEMOGLOBIN 28.4 pg (27.0-33.0); MEAN CORPUSCULAR VOLUME 94.5 fl (80.0-96.0); PLATELET COUNT, AUTOMATED 175 10^3/uL (150-450); WHITE BLOOD COUNT 14.4 10^3/uL (4.0-10.0)
== END ==
LOC: SKLAB4 05:41
DX: D72.829 Elevated white blood cell count, unspecified (principal); R79.89 Other specified abnormal findings of blood chemistry; N17.9 Acute kidney failure, unspecified

== ENCOUNTER → 2020-11-08 | Outpatient (REF) | payer MEDICARE, MEDICAID | DX: D72.829 Elevated white blood cell count, unspecified (principal) ==

== ENCOUNTER → 2020-11-09 | Outpatient (REF) | payer MEDICARE, MEDICAID ==
--- NOTE | 2020-11-09 16:04 | REP ---
INDICATION: ELEVATED WBC'S COMPARISON: 01/28/2018 TECHNIQUE: Portable AP view of the chest FINDINGS: The mediastinum and cardiac silhouette are stable and within normal limits for portable technique. Pacemaker in stable position. The lung bolden demonstrate chronic changes and subtle superimposed bilateral airspace disease is suspected. No effusion. No pneumothorax. Skeletal structures demonstrate degenerative changes along with old healed right rib fractures and right humerus fracture. IMPRESSION: Suspected scattered bilateral airspace disease. Correlation with physical examination and auscultation is recommended. <Electronically signed by Triston Vaughn > 11/09/20 [id number]
== END ==
LOC: SKLAB4 06:21
DX: D72.829 Elevated white blood cell count, unspecified (principal); Z95.0 Presence of cardiac pacemaker

== ENCOUNTER → 2020-11-09 | Outpatient (REF) | payer MEDICARE, MEDICAID ==
[2020-11-09 03:49] LABS: APPEARANCE, URINE HAZY (CLEAR); BACTERIA, URINE AUTO NEGATIVE (NEGATIVE); BILIRUBIN, URINE AUTO NEGATIVE (NEGATIVE); BLOOD, URINE BLOOD 3+ (NEGATIVE); COLOR, URINE YELLOW (YELLOW); GLUCOSE, URINE (UA) AUTO 3+ mg/dL (NEGATIVE); KETONE, URINE AUTO NEGATIVE (NEGATIVE); LEUKOCYTE ESTERASE, URINE AUTO 1+ (NEGATIVE); NITRITE, URINE AUTO NEGATIVE (NEGATIVE); PROTEIN, URINE AUTO 1+ mg/dL (NEGATIVE); RBC, URINE AUTO 25 /HPF (0-3); SQUAMOUS EPITHELIAL CELL UR AU 1 /HPF (0-6); UROBILINOGEN, URINE AUTO 0.2 mg/dL (0.0-2.0); WBC, URINE AUTO 22 /HPF (0-3)
[2020-11-09 09:53] LABS: HEMATOCRIT 28.3 % (36.0-47.0); HEMOGLOBIN 8.5 g/dl (12.0-15.5); MEAN CORPUSCULAR HEMOGLOBIN 28.6 pg (27.0-33.0); MEAN CORPUSCULAR VOLUME 95.3 fl (80.0-96.0); PLATELET COUNT, AUTOMATED 179 10^3/uL (150-450); RED BLOOD COUNT 2.97 10^6/uL (4.00-5.40); WHITE BLOOD COUNT 14.6 10^3/uL (4.0-10.0)
[2020-11-09 10:11] LABS: CALCIUM LEVEL 7.6 MG/DL (8.8-10.2); CREATININE FOR GFR 1.34 MG/DL (0.55-1.30); POTASSIUM SERUM 4.3 MEQ/L (3.5-5.1)
== END ==
LOC: SKLAB4 02:33
DX: D72.829 Elevated white blood cell count, unspecified (principal); Z95.0 Presence of cardiac pacemaker; Z79.899 Other long term (current) drug therapy

== ENCOUNTER → 2020-11-10 | Outpatient (REF) | payer MEDICARE, MEDICAID ==
[2020-11-10 11:31] LABS: HEMATOCRIT 27.6 % (36.0-47.0); HEMOGLOBIN 8.3 g/dl (12.0-15.5); MEAN CORPUSCULAR HEMOGLOBIN 28.5 pg (27.0-33.0); MEAN CORPUSCULAR HGB CONC 30.1 g/dl (32.0-36.5); MEAN CORPUSCULAR VOLUME 94.8 fl (80.0-96.0); PLATELET COUNT, AUTOMATED 164 10^3/uL (150-450); RED BLOOD COUNT 2.91 10^6/uL (4.00-5.40); WHITE BLOOD COUNT 15.6 10^3/uL (4.0-10.0)
[2020-11-10 11:51] LABS: CALCIUM LEVEL 8.2 MG/DL (8.8-10.2); CREATININE FOR GFR 1.32 MG/DL (0.55-1.30); GLOMERULAR FILTRATION RATE 41.8 (>39); POTASSIUM SERUM 4.8 MEQ/L (3.5-5.1)
== END ==
LOC: SKLAB4 10:28 → SKLAB3 10:28
DX: N17.9 Acute kidney failure, unspecified (principal)

== ENCOUNTER → 2020-11-12 | Outpatient (REF) | payer MEDICARE, MEDICAID | LOC: SKLAB4 06:03 | DX: Z20.828 Contact with and (suspected) exposure to other viral communicable diseases (principal) ==

== ENCOUNTER → 2020-11-13 | Outpatient (REF) | payer MEDICARE, MEDICAID ==
[2020-11-13 10:00] LABS: HEMATOCRIT 30.3 % (36.0-47.0); HEMOGLOBIN 8.9 g/dl (12.0-15.5); MEAN CORPUSCULAR HEMOGLOBIN 28.2 pg (27.0-33.0); MEAN CORPUSCULAR HGB CONC 29.4 g/dl (32.0-36.5); MEAN CORPUSCULAR VOLUME 95.9 fl (80.0-96.0); PLATELET COUNT, AUTOMATED 323 10^3/uL (150-450); RED BLOOD COUNT 3.16 10^6/uL (4.00-5.40); WHITE BLOOD COUNT 12.3 10^3/uL (4.0-10.0)
[2020-11-13 10:28] LABS: CALCIUM LEVEL 8.6 MG/DL (8.8-10.2); CREATININE FOR GFR 1.46 MG/DL (0.55-1.30); GLOMERULAR FILTRATION RATE 37.2 (>39); POTASSIUM SERUM 5.6 MEQ/L (3.5-5.1)
== END ==
LOC: SKLAB4 10:23
DX: N18.32 Chronic kidney disease, stage 3b (principal); Z79.899 Other long term (current) drug therapy

== ENCOUNTER → 2020-11-17 | Outpatient (REF) | payer MEDICARE, MEDICAID ==
[2020-11-17 13:43] LABS: HEMOGLOBIN 8.4 g/dl (12.0-15.5); MEAN CORPUSCULAR VOLUME 93.3 fl (80.0-96.0); PLATELET COUNT, AUTOMATED 357 10^3/uL (150-450); WHITE BLOOD COUNT 8.7 10^3/uL (4.0-10.0)
[2020-11-17 14:28] LABS: CALCIUM LEVEL 8.7 MG/DL (8.8-10.2); CREATININE FOR GFR 1.33 MG/DL (0.55-1.30); GLOMERULAR FILTRATION RATE 41.4 (>39); POTASSIUM SERUM 5.3 MEQ/L (3.5-5.1)
== END ==
LOC: SKLAB4 12:06
DX: D64.9 Anemia, unspecified (principal)

== ENCOUNTER → 2020-11-19 | Outpatient (REF) | payer MEDICARE, MEDICAID | LOC: SKLAB4 06:37 | DX: Z11.52 Encounter for screening for COVID-19 (principal) ==

== ENCOUNTER → 2020-11-26 | Outpatient (REF) | payer MEDICARE, MEDICAID | LOC: SKLAB4 06:15 | PROVIDERS: ATTEND Internal Medicine | DX: Z20.822 Contact with and (suspected) exposure to COVID-19 (principal) ==